=== PATIENT | male | born 1985 | race Caucasian/White ===

== ENCOUNTER 2024-12-03 12:15 | Outpatient (CLI) | payer BC, SELFPAY ==
[2024-12-03 22:55] LABS: Chlamydia trachomatis Negative (Negative); Neisseria gonorrhoeae Negative (Negative); Trichomonas vaginalis Negative (Negative)
== END 2024-12-03 23:59 | disposition home or self-care (01) ==
LOC: LAB.DROPOF 12-04 10:50
PROVIDERS: PCP Family Medicine; Visit Provider Family Medicine
DX: Z11.3 Encounter for screening for infections with a predominantly sexual mode of transmission (principal)
CPT/HCPCS: 87491; 87591; 87661

== ENCOUNTER 2025-01-21 13:55 | Outpatient (CLI) | payer BC, SELFPAY ==
[2025-01-21 16:57] LABS: Coronavirus 19, PCR Not Detected (NotDetected); Influenza A, PCR Not Detected (NotDetected); Influenza B, PCR Not Detected (NotDetected)
--- OUTSIDE RECORDS SUMMARY | 2025-01-22 13:55 | XMS_ITS | Data Portability ---
Author Organization [facility] Address [address] [place] [address] Care Team Providers Care Recycling Coordinator Name Role Phone LIZZY GOMEZ Referring Provider MELLISSA HENSON Referring Provider CJ TERRELL Referring Provider Assessment Encounter Date Assessment Date Assessment LastModified by Organization Details LastModified Time 05/26/2020 05/26/2020 Mr. Atkins present s for a check up. He has gained up to a normal weight and is trying to follow a healthy diet. He continues to take suboxone for a past history of opioid addiction and this causes chronic constipation issues. He did have a recent normal colonoscopy other than internal hemorrhoids as well as an upper endoscopy with a hiatal hernia. He has had improvement in the constipation issues improve from taking daily fiber supplement and occasional miralax. Labs are reviewed and other than elevated lipids are basically normal. He only smokes e cigarettes now and we encourage him to continue to try to cut back. He receives the flu vaccine today. His addiction medicine clinic is considering transitioning him to about 3 months of bupreno-rphine injections that apparently will enable him to wean off the suboxone. Ear wax is a recurrent issue and ears are irrigated clear. We continue to encourage healthy lifestyle choices. brandan Not available 05/27/2020 21:34:19 2021 2021 Mr. Atkins present s for a check up. He has gained up to a normal weight and is trying to follow a healthy diet. He continues to take suboxone for a past history of opioid addiction and this causes chronic constipation issues. He did have a normal colonoscopy last year other than internal hemorrhoids as well as an upper endoscopy with a hiatal hernia. He has had improvement in the constipation issues improve from taking daily fiber supplement and occasional miralax. Labs are reviewed and other than elevated lipids are basically normal. He only smokes e cigarettes now and we encourage him to continue to try to cut back. He is going to try nicotine gum Vaccines are up to date. He has issues with his sinuses and especially a chronic rhinitis. We will recommend trying the generic for Rhinocort as he tends to have dry nasal mucosa and thinks he has some damage from his previous habit of snorting opioids, etc. We continue to encourage healthy lifestyle choices. Not available 06/26/2021 22:07:24 07/08/2022 07/08/2022 Mr. Atkins present s for a check up. He has gained some weight back since a recent bout of Covid in April where he went down below 140 pounds and is trying to follow a healthy diet. He has taken suboxone for at least five years for a past history of opioid addiction and this causes chronic constipation issues. He has recently been transitioned to a monthly long acting injection of the Buprenorphine with plans to completely stop in three months with tapered dose. He is ready to be off the medication due to the abdominal discomfort and constipation. He did have a normal colonoscopy in 2019 other than internal hemorrhoids as well as an upper endoscopy with a hiatal hernia. He has had improvement in the constipation issues improve from taking daily fiber supplement and occasional miralax and the Movantik. We discussed that he will likely feel much better when completely weaned off the buprenorphine as he will be able to stop miralax as well since it also causes gas and bloating. He has been concerned about palpitations and chest pain. His maternal grandfather of OR at age 35. He no longer smokes but continues to vape and we discourage that as well. He has tried to cut back on caffeine and stopped Red Bulls but drinks coffee. With his past history of drug use he does worry about his heart, although he never injected but only snorted. Subsequently he has chronic sinus issues and what sounds like a nasal perforation. In addition with his recent bout of covid, he is worried about his heart and that warrants referral. His ten year cardiovascular risk is calculated for him at age 40 and is 4.19%. This calculation has become a mandated meaningful use screen. He does not sleep well and wakes up frequently. We also advised that may improve when he completely weans off the opioid. He remains gainfully employeed at [employer] working very long hours. Labs are reviewed and other than elevated lipids are basically normal. He only smokes e cigarettes now and we encourage him to continue to try to cut back. Vaccines are up to date but he should get the new bivalent covid booster in August since he had the virus in late April. He has issues with his sinuses and especially a chronic rhinitis. We will recommend trying the generic for Rhinocort as he tends to have dry nasal mucosa and thinks he has some damage from his previous habit of snorting opioids, etc. We continue to encourage healthy lifestyle choices. Not available 07/10/2022 11:38:54 02/27/2024 02/27/2024 Ilan had Covid 3 weeks ago and improved but this weekend is feeling very sick with fever and severe fatigue. He has bilateral ear infections and a febrile sinusitis. We recommend he be off tonight but may return to work tomorrow night. Not available 02/27/2024 10:24:23 Plan of Treatment Reminders Order Date Submit Date Provider Last Modified By Organization Details Last Modified Time Details Appointments [facility] 2024 01:30P Lili Caicedo MD Not available Not available Not available Lab rapid flu (A+B) [address], [address] [place], [address], 02/27/2024 09:39:22 rapid strep group A, throat [address], [address] [place], [address], 02/27/2024 09:39:24 lipid panel, serum 2019 020 [facility], [address] [place], [address], 05/27/2020 07:00:03 TSH, serum or plasma 10/27/ 2020 10/27/2 020 [facility], [address] [place], [address], 05/27/2020 07:00:04 CBC w/ auto diff 2019 [facility], [address] [place], [address], 05/27/2020 07:00:04 CMP, serum or plasma 2019 [facility], [address] [place], [address], 05/27/2020 07:00:03 Referral cardiolog ist referral 2021 022 [email or web address] Risa Williamson MD, [address], [address], [place], [address], 03/29/2023 16:58:09 orthopedi c referral 2019 020 [email or web address] 5 Troy Pappas MD ([facility]) , [address] [place], [address], 03/23/2020 15:27:07 Procedures None recorded. Surgeries None recorded. Imaging None recorded. Medication Orders cefdinir 300 mg capsule 2023 025 ELIZ[facility], [address] [place], [address], 11/13/2024 16:53:14 ceftriaxo ne 1 gram solution for injection 2023 024 [facility], [address] [place], [address], 02/27/2024 10:26:50 dexametha sone sodium phosphate 4 mg/mL injection solution 2023 024 [facility], [address], [place], [address], 02/27/2024 10:26:50 pantopraz ole 40 mg tablet,de layed release 2021 ELIZ[facility], [address], [place], [address], 07/08/2022 17:40:28 budesonid e 32 mcg/actua tion nasal spray 2020 021 [facility], [address], [place], [address], 07/08/2022 17:23:17 sertralin e 50 mg tablet 2020 021 [facility], [address], [place], [address], 11/13/2024 16:48:36 loratadin e 10 mg tablet 2019 020 [facility], [address], [place], [address], 07/08/2022 17:23:30 pantopraz ole 40 mg tablet,de layed release 2019 020 [facility], [address] [place], [address], 05/26/2020 09:53:00 Patient TargetsNo targets recorded. Patient Instructions Encounter Date Encounter Id Patient Instructions Last Modified By Organization Details Last Modified Time 05/26/2020 [id number] buprenorphine (injection - sublocade) Not available 05/26/2020 09:51:40 2021 [id number] stopping smokele ss tobacco use: care instructions Not available 2021 11:15:55 Quitting Tobacco : Care Instructions Not available 2021 11:15:55 07/08/2022 [id number] stopping smokele ss tobacco use: care instructions Not available 07/08/2022 17:38:21 Quitting Tobacco : Care Instructions brandan Not available 07/08/2022 17:38:20 Reason for Referral Orthopedic Referral for Wing ed left scapula follow up on left winged scapula and associated pain. 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 Fax Elvin hastings Jr., M.D., Medic al Direc [facility] [address] : [place] [address] Phone Numbe r: [id number] Nori moyer M.D. PATHO LOGY REPOR T Patie nt Name: BELL VILLAFUERTE Date of : [birth year] Age/S ex: 34/M Accou nt Numbe r: [id number] Medic al Recor d Numbe r: [id number] Order ing MD: CLOVER CH Date Colle cted : 2019 Date Recei kaylah : 2019 Date Repor kurtis : 2019 Exam: Biops y Acces vero# : [id number] Labor atory #: [id number] 3 Copie s To: Techn ician : Clini evonne Histo ry Recta l bleed ing, GERD BodyS ite DUODE NUM, BIOPS Y Gross Descr iptio n Piece s: Two. Aggre gate dimen sions : 0.6 x 0.5 x 0.2 cm. Casse ttes: One, entir safia submi tted. Micro scopi c Descr iptio n Secti ons of duode num confi rm duode nal mucos a with a anastasia l villo us archi tectu re and anastasia l numbe rs of infla mmato ry cells in the hayder a propr ia. Occas ional unrem arkab le Brunn er's gland s are prese nt deepl y. Final Diagn osis NO [place] [address] BodyS ite GASTR IC BIOPS Y Gross Descr iptio n Piece s: Two. Aggre gate dimen sions : 0.5 x 0.5 x 0.2 cm. Casse ttes: One, entir safia submi tted. Micro scopi c Descr iptio n The gastr ic mucos a shows no infla mmato ry, metap lasti c or dyspl astic proce ss. Legal ly authe ntica kurtis by NORI DUGGAN MD 03-24 11:15 :00 Final Diagn osis NO SIGNI FICAN T PATHO [place]IC [place] [address] BodyS ite ESOPH NAT, BIOPS Y SubSi te DISTA L Gross Descr iptio n Piece s: Two. Aggre gate dimen sions : 0.6 x 0.4 x 0.1 cm. Casse ttes: One, entir safia submi tted. BW/sd l Micro scopi c Descr iptio n The squam ous epith elium shows no basal hyper plasi a, elong ation of papil lae or eosin ophil s. Scatt ered lymph ocyte s are prese nt. Viral rosas e and dyspl shirley are not prese nt. Profe ssion al inter preta tion rende red by Nori moyer Jr., M.D. at [facility] Medic [facility], [address] [place] [id number] , CLIA# [id number] . Final Diagn osis CHRON IC NONSP ECIFI C ESOPH AGITI S EJT/[place] [address] Legal ly authe ntica kurtis by NORI DUGGAN MD 03-24 11:15 :00 Not Available [facility] (Pre[facility]Op [facility]) [address] [place] [address] [place], [address], 03/24/2020 11:38:06 05/26/2005/27/2020 lipid panel , serum cholesterol, total 214 mg/dL <200 high Not Available [facility] [address] [place], [address], 05/27/2020 07:00:03 05/26/2005/27/2020 lipid panel , serum HDL cholesterol 54 mg/dL > or = 40 normal Not Available [facility] [address] [place], [address], 05/27/2020 07:00:03 05/26/2005/27/2020 lipid panel , serum triglyceride s 337 mg/dL <150 high If a non-f astin g speci men was colle cted, consi karlos repea t trigl yceri de testi ng on a fasti ng speci men if clini itzel indic ated. Darrell alejandra et al. J. of Clin. Lipid ol. 2015; 9:129 -169. Not Available [facility] [address] [place], [address], 05/27/2020 07:00:03 05/26/2005/27/2020 lipid panel , serum LDL-choleste rol 112 mg/dL _(evonne c) high Refer ence range : <100 Deena able range <100 mg/dL for prima ry preve ntion ; <70 mg/dL for patie nts with CHD or diabe tic patie nts with > or = 2 CHD risk facto rs. LDL-C is now calcu lated using the Jessica n-Hop kins calcu latradha n, which is a valid ated novel luis mendoza than the Fried caro equat ion in the estim ation of LDL-C . Jessica fraire SS et al. VICKIE. 2013; 310(1 9): 2061- 2068 (http ://ed ucati on.Qu estDi Zeomatrixos tics. com/f aq/FA Q164) Not Available [facility] [address] [facility] [place], [address], 05/27/2020 07:00:03 05/26/2005/27/2020 lipid panel , serum chol/HDLC ratio 4.0 (calc ) <5.0 normal Not Available [facility] [address] [place], [address], 05/27/2020 07:00:03 05/26/2005/27/2020 lipid panel , serum non HDL cholesterol 160 mg/dL _(evonne c) <130 high For patie nts with diabe alice plus 1 major ASCVD risk facto r, treat ing to a non-H DL-C goal of <100 mg/dL (LDL- C of <70 mg/dL ) is consi chrisd a thera peuti c optio n. Not Available [facility] [address] [place], [address], 05/27/2020 07:00:03 05/26/2005/27/2020 CMP, serum or plasm a glucose 82 mg/dL 65-139 normal Non-f astin g refer ence inter caleb Not Available [facility] [address] [place], [address], 05/27/2020 07:00:03 05/26/2005/27/2020 CMP, serum or plasm a urea nitrogen (BUN) 8 mg/dL 7-25 normal Not Available [facility] [address] [place], [address], 05/27/2020 07:00:03 05/26/2005/27/2020 CMP, serum or plasm a creatinine 1.00 mg/dL 0.60-1 .35 normal Not Available [facility] [address] [place], [address], 05/27/2020 07:00:03 05/26/2005/27/2020 CMP, serum or plasm a eGFR non-afr. palestinian 98 mL/mi n/1.7 3m2 > or = 60 normal Not Available [facility] [address] [facility] [place], [address], 05/27/2020 07:00:03 05/26/20 20 05/27/2020 CMP, serum or plasm a eGFR 113 mL/mi n/1.7 3m2 > or = 60 normal Not Available [facility] [address] [facility] [place], [address], 05/27/2020 07:00:03 05/26/2005/27/2020 CMP, serum or plasm a BUN/creatini ne ratio NOT APPLIC ABLE (calc ) 6-22 Not Available [facility] [address] [place], [address], 05/27/2020 07:00:03 05/26/2005/27/2020 CMP, serum or plasm a sodium 142 mmol/ L 135-14 6 normal Not Available [facility] [address] [place], [address], 05/27/2020 07:00:03 05/26/20 20 05/27/2020 CMP, serum or plasm a potassium 4.5 mmol/ L 3.5-5. 3 normal Not Available [facility] [address] [place], [address], 05/27/2020 07:00:03 05/26/2005/27/2020 CMP, serum or plasm a chloride 104 mmol/ L 98-110 normal Not Available [facility] [address] [facility] [place], [address], 05/27/2020 07:00:03 05/26/2005/27/2020 CMP, serum or plasm a carbon dioxide 33 mmol/ L 20-32 high Not Available [facility] [address] [facility] [place], [address], 05/27/2020 07:00:03 05/26/2005/27/2020 CMP, serum or plasm a calcium 10.1 mg/dL 8.6-10 .3 normal Not Available [facility] [address] [facility] [place], [address], 05/27/2020 07:00:03 05/26/2005/27/2020 CMP, serum or plasm a protein, total 7.1 g/dL 6.1-8. 1 normal Not Available [facility] [address] [facility] [place], [address], 05/27/2020 07:00:03 05/26/2005/27/2020 CMP, serum or plasm a albumin 5.0 g/dL 3.6-5. 1 normal Not Available [facility] [place] [address] [facility] [place], [address], 05/27/2020 07:00:03 05/26/2005/27/2020 CMP, serum or plasm a globulin 2.1 g/dL_ (calc ) 1.9-3. 7 normal Not Available [facility] [address] [facility] [place], [address], 05/27/2020 07:00:03 05/26/2005/27/2020 CMP, serum or plasm a albumin/glob ulin ratio 2.4 (calc ) 1.0-2. 5 normal Not Available [facility] [place], [address], 05/27/2020 07:00:03 05/26/2005/27/2020 CMP, serum or plasm a bilirubin, total 0.3 mg/dL 0.2-1. 2 normal Not Available [facility] [place], [address], 05/27/2020 07:00:03 05/26/202020 CMP, serum or plasm a alkaline phosphatase 64 U/L 36-130 normal Not Available [facility] [employer] [facility] [address] [facility] [place], [address], 05/27/2020 07:00:03 05/26/2005/27/2020 CMP, serum or plasm a AST 28 U/L 10-40 normal Not Available [facility] [address] [facility] [place], [address], 05/27/2020 07:00:03 05/26/2005/27/2020 CMP, serum or plasm a ALT 25 U/L 9-46 normal Not Available [facility] [place], [address], 05/27/2020 07:00:03 05/26/2005/27/2020 TSH, serum or plasm a TSH 2.05 mIU/L 0.40-4 .50 normal Not Available [employer] [facility] [address] [facility] [place], [address], 05/27/2020 07:00:04 05/26/2005/27/2020 CBC w/ auto diff white blood cell count 8.2 thous and/u L 3.8-10 .8 normal Not Available [employer] [facility] [address] [place], [place] [address], [address], 05/27/2020 07:00:04 05/26/2005/27/2020 CBC w/ auto diff red blood cell count 4.37 regine on/uL 4.20-5 .80 normal Not Available [facility] [facility] [place], [address], 05/27/2020 07:00:04 05/26/2005/27/2020 CBC w/ auto diff hemoglobin 12.7 g/dL 13.2-1 7.1 low Not Available [facility] [facility] [address] [place], [place] [address], [address], 05/27/2020 07:00:04 05/26/2005/27/2020 CBC w/ auto diff hematocrit 37.9 % 38.5-5 0.0 low Not Available [facility] [address] [facility] [place], [address], 05/27/2020 07:00:04 05/26/2005/27/2020 CBC w/ auto diff MCV 86.7 fL 80.0-1 00.0 normal Not Available [facility] [address] [facility] [place], [address], 05/27/2020 07:00:04 05/26/2005/27/2020 CBC w/ auto diff MCH 29.1 pg 27.0-3 3.0 normal Not Available [facility] [address] [facility] [place], [address], 05/27/2020 07:00:04 05/26/2005/27/2020 CBC w/ auto diff MCHC 33.5 g/dL 32.0-3 6.0 normal Not Available [facility] [address] [facility] [place], [address], 05/27/2020 07:00:04 05/26/2005/27/2020 CBC w/ auto diff RDW 13.0 % 11.0-1 5.0 normal Not Available [facility] [address] [facility] [place], [address], 05/27/2020 07:00:04 05/26/2005/27/2020 CBC w/ auto diff platelet count 230 thous and/u L 140-40 0 normal Not Available [facility] [address] [facility] [place], [address], 05/27/2020 07:00:04 05/26/2005/27/2020 CBC w/ auto diff MPV 10.4 fL 7.5-12 .5 normal Not Available [facility] [address], [address], 05/27/2020 07:00:04 05/26/20 20 05/27/2020 CBC w/ auto diff absolute neutrophils 3838 cells /uL 1500-7 800 normal Not Available [facility] [address], [place], [address], 05/27/2020 07:00:04 05/26/2005/27/2020 CBC w/ auto diff absolute lymphocytes 3387 cells /uL 850-39 00 normal Not Available [facility] [address], [place], [address], 05/27/2020 07:00:04 05/26/2005/27/2020 CBC w/ auto diff absolute monocytes 631 cells /uL 200-95 0 normal Not Available [facility] [address], [place], [address], 05/27/2020 07:00:04 05/26/2005/27/2020 CBC w/ auto diff absolute eosinophils 303 cells /uL 15-500 normal Not Available [facility] [address], [place], [address], 05/27/2020 07:00:04 05/26/2005/27/2020 CBC w/ auto diff absolute basophils 41 cells /uL 0-200 normal Not Available [facility] [address], [place], [address], 05/27/2020 07:00:04 05/26/2005/27/2020 CBC w/ auto diff neutrophils 46.8 % normal Not Available [facility] [address], [place], [address], 05/27/2020 07:00:04 05/26/2005/27/2020 CBC w/ auto diff lymphocytes 41.3 % normal Not Available [facility] [address] [place], [address], 05/27/2020 07:00:04 05/26/20 20 05/27/2020 CBC w/ auto diff monocytes 7.7 % normal Not Available [facility] [address] [place], [address], 05/27/2020 07:00:04 05/26/20 20 05/27/2020 CBC w/ auto diff eosinophils 3.7 % normal Not Available [facility] [address] [place], [address], 05/27/2020 07:00:04 05/26/2005/27/2020 CBC w/ auto diff basophils 0.5 % normal Not Available [facility] [address] [place], [address], 05/27/2020 07:00:04 06/21/20 21 06/22/2021 LIPID PANEL , STAND CIERRA cholesterol, total 198 mg/dL <200 normal Not Available [facility] [address] [place], [address], 06/22/2021 07:14:16 06/21/20 21 06/22/2021 LIPID PANEL , STAND CIERRA HDL cholesterol 53 mg/dL > or = 40 normal Not Available [facility] [address] [place], [address], 06/22/2021 07:14:16 06/21/20 21 06/22/2021 LIPID PANEL , STAND CIERRA triglyceride s 259 mg/dL <150 high If a non-f astin g speci men was colle cted, consi karlos repea t trigl yceri de testi ng on a fasti ng speci men if clini itzel indic ated. Darrell alejandra et al. J. of Clin. Lipid ol. 2015; 9:129 -169. Not Available [facility] [address], [place], [address], 06/22/2021 07:14:16 06/21/20 21 06/22/2021 LIPID PANEL , STAND CIERRA LDL-choleste rol 108 mg/dL _(evonne c) high Refer ence range : <100 Deena able range <100 mg/dL for prima ry preve ntion ; <70 mg/dL for patie nts with CHD or diabe tic patie nts with > or = 2 CHD risk facto rs. LDL-C is now calcu lated using the Jessica n-Hop kins calcu latio n, which is a valid ated novel luis solis anthony r accur acy than the Fried caro equat ion in the estim ation of LDL-C . Jessica fraire SS et al. VICKIE. 2013; 310(1 9): 2061- 2068 (http ://ed ucati on.Qu [employer]. com/f aq/FA Q164) Not Available [facility] [address], [place], [address], 06/22/2021 07:14:16 06/21/2006/22/2021 LIPID PANEL , STAND CIERRA chol/HDLC ratio 3.7 (calc ) <5.0 normal Not Available [facility] [place] [facility] [address], [place], [address], 06/22/2021 07:14:16 06/21/20 21 06/22/2021 LIPID PANEL , STAND CIERRA non HDL cholesterol 145 mg/dL _(evonne c) <130 high For patie nts with diabe alice plus 1 major ASCVD risk facto r, treat ing to a non-H DL-C goal of <100 mg/dL (LDL- C of <70 mg/dL ) is consi chrisd a rafat spring optio n. Not Available [facility] [place] [facility] [address], [place], [address], 06/22/2021 07:14:16 06/21/20 21 06/22/2021 COMPR EHENS SEDRICK METAB OLIC PANEL glucose 91 mg/dL 65-139 normal Non-f astin g refer ence inter caleb Not Available [facility] [place] [facility] [address] [place], [address], 06/22/2021 07:14:16 06/21/20 21 06/22/2021 COMPR EHENS SEDRICK METAB OLIC PANEL urea nitrogen (BUN) 10 mg/dL 7-25 normal Not Available [facility] [place] [facility] [address] [place], [address], 06/22/2021 07:14:16 06/21/20 21 06/22/2021 COMPR EHENS SEDRICK METAB OLIC PANEL creatinine 1.02 mg/dL 0.60-1 .35 normal Not Available [facility] [address] [place], [address], 06/22/2021 07:14:16 06/21/20 21 06/22/2021 COMPR EHENS SEDRICK METAB OLIC PANEL eGFR non-afr. palestinian 94 mL/mi n/1.7 3m2 > or = 60 normal Not Available [facility] [place] [facility] [address] [place], [address], 06/22/2021 07:14:16 06/21/20 21 06/22/2021 COMPR EHENS SEDRICK METAB OLIC PANEL eGFR 109 mL/mi n/1.7 3m2 > or = 60 normal Not Available [facility] [place] [facility] [address] [place], [address], 06/22/2021 07:14:16 06/21/20 21 06/22/2021 COMPR EHENS SEDRICK METAB OLIC PANEL BUN/creatini ne ratio NOT APPLIC ABLE (calc ) 6-22 Not Available [facility] [address] [place], [address], 06/22/2021 07:14:16 06/21/20 21 06/22/2021 COMPR EHENS SEDRICK METAB OLIC PANEL sodium 140 mmol/ L 135-14 6 normal Not Available [facility] [address] [place], [address], 06/22/2021 07:14:16 06/21/20 21 06/22/2021 COMPR EHENS SEDRICK METAB OLIC PANEL potassium 4.5 mmol/ L 3.5-5. 3 normal Not Available [facility] [address] [place], [address], 06/22/2021 07:14:16 06/21/20 21 06/22/2021 COMPR EHENS SEDRICK METAB OLIC PANEL chloride 101 mmol/ L 98-110 normal Not Available [facility] [address] [place], [address], 06/22/2021 07:14:16 06/21/20 21 06/22/2021 COMPR EHENS SEDRICK METAB OLIC PANEL carbon dioxide 36 mmol/ L 20-32 high Not Available [facility] [address] [place], [address], 06/22/2021 07:14:16 06/21/20 21 06/22/2021 COMPR EHENS SEDRICK METAB OLIC PANEL calcium 10.1 mg/dL 8.6-10 .3 normal Not Available [facility] [address] [place], [address], 06/22/2021 07:14:16 06/21/20 21 06/22/2021 COMPR EHENS SEDRICK METAB OLIC PANEL protein, total 7.2 g/dL 6.1-8. 1 normal Not Available [facility] [address] [place], [address], 06/22/2021 07:14:16 06/21/20 21 06/22/2021 COMPR EHENS SEDRICK METAB OLIC PANEL albumin 5.1 g/dL 3.6-5. 1 normal Not Available [facility] [address] [place], [address], 06/22/2021 07:14:16 06/21/20 21 06/22/2021 COMPR EHENS SEDRICK METAB OLIC PANEL globulin 2.1 g/dL_ (calc ) 1.9-3. 7 normal Not Available [facility] [address] [place], [address], 06/22/2021 07:14:16 06/21/20 21 06/22/2021 COMPR EHENS SEDRICK METAB OLIC PANEL albumin/glob ulin ratio 2.4 (calc ) 1.0-2. 5 normal Not Available [facility] [address] [place], [address], 06/22/2021 07:14:16 06/21/20 21 06/22/2021 COMPR EHENS SEDRICK METAB OLIC PANEL bilirubin, total 0.3 mg/dL 0.2-1. 2 normal Not Available [facility] [address] [place], [address], 06/22/2021 07:14:16 06/21/20 21 06/22/2021 COMPR EHENS SEDRICK METAB OLIC PANEL alkaline phosphatase 66 U/L 36-130 normal Not Available [facility] [address] [place], [address], 06/22/2021 07:14:16 06/21/20 21 06/22/2021 COMPR EHENS SEDRICK METAB OLIC PANEL AST 20 U/L 10-40 normal Not Available [facility] [address] [place] [address], [address], 06/22/2021 07:14:16 06/21/20 21 06/22/2021 COMPR EHENS SEDRICK METAB OLIC PANEL ALT 15 U/L 9-46 normal Not Available [facility] [address] [place], [address], 06/22/2021 07:14:16 06/21/20 21 06/22/2021 TSH TSH 1.25 mIU/L 0.40-4 .50 normal Not Available [facility] [address] [place], [address], 06/22/2021 07:14:16 06/21/20 21 06/22/2021 CBC (INCL UDES DIFF/ PLT) white blood cell count 6.8 thous and/u L 3.8-10 .8 normal Not Available [facility] [address] [place], [address], 06/22/2021 07:14:17 06/21/20 21 06/22/2021 CBC (INCL UDES DIFF/ PLT) red blood cell count 4.87 regine on/uL 4.20-5 .80 normal Not Available [facility] [address] [place], [address], 06/22/2021 07:14:17 06/21/20 21 06/22/2021 CBC (INCL UDES DIFF/ PLT) hemoglobin 13.7 g/dL 13.2-1 7.1 normal Not Available [facility] [address] [place], [address], 06/22/2021 07:14:17 06/21/20 21 06/22/2021 CBC (INCL UDES DIFF/ PLT) hematocrit 41.4 % 38.5-5 0.0 normal Not Available [facility] [address] [place], [address], 06/22/2021 07:14:17 06/21/20 21 06/22/2021 CBC (INCL UDES DIFF/ PLT) MCV 85.0 fL 80.0-1 00.0 normal Not Available [facility] [place] [facility] [address] [place], [address], 06/22/2021 07:14:17 06/21/20 21 06/22/2021 CBC (INCL UDES DIFF/ PLT) MCH 28.1 pg 27.0-3 3.0 normal Not Available [facility] [address] [place], [address], 06/22/2021 07:14:17 06/21/20 21 06/22/2021 CBC (INCL UDES DIFF/ PLT) MCHC 33.1 g/dL 32.0-3 6.0 normal Not Available [facility] [address] [place], [address], 06/22/2021 07:14:17 06/21/20 21 06/22/2021 CBC (INCL UDES DIFF/ PLT) RDW 13.3 % 11.0-1 5.0 normal Not Available [facility] [address] [place], [address], 06/22/2021 07:14:17 06/21/20 21 06/22/2021 CBC (INCL UDES DIFF/ PLT) platelet count 253 thous and/u L 140-40 0 normal Not Available [facility] [address] [place], [address], 06/22/2021 07:14:17 06/21/20 21 06/22/2021 CBC (INCL UDES DIFF/ PLT) MPV 10.5 fL 7.5-12 .5 normal Not Available [facility] [address] [place], [address], 06/22/2021 07:14:17 06/21/20 21 06/22/2021 CBC (INCL UDES DIFF/ PLT) absolute neutrophils 3631 cells /uL 1500-7 800 normal Not Available [facility] [address], [place], [address], 06/22/2021 07:14:17 06/21/20 21 06/22/2021 CBC (INCL UDES DIFF/ PLT) absolute lymphocytes 2346 cells /uL 850-39 00 normal Not Available [facility] [place] [facility] [address], [place], [address], 06/22/2021 07:14:17 06/21/20 21 06/22/2021 CBC (INCL UDES DIFF/ PLT) absolute monocytes 517 cells /uL 200-95 0 normal Not Available [facility] [place] [facility] [address], [place], [address], 06/22/2021 07:14:17 06/21/20 21 06/22/2021 CBC (INCL UDES DIFF/ PLT) absolute eosinophils 279 cells /uL 15-500 normal Not Available [facility] [place] [facility] [address], [place], [address], 06/22/2021 07:14:17 06/21/20 21 06/22/2021 CBC (INCL UDES DIFF/ PLT) absolute basophils 27 cells /uL 0-200 normal Not Available [facility] [place] [facility] [address], [place], [address], 06/22/2021 07:14:17 06/21/20 21 06/22/2021 CBC (INCL UDES DIFF/ PLT) neutrophils 53.4 % normal Not Available [facility] [place] [facility] [address], [place], [address], 06/22/2021 07:14:17 06/21/20 21 06/22/2021 CBC (INCL UDES DIFF/ PLT) lymphocytes 34.5 % normal Not Available [facility] [place] [facility] [address], [place], [address], 06/22/2021 07:14:17 06/21/20 21 06/22/2021 CBC (INCL UDES DIFF/ PLT) monocytes 7.6 % normal Not Available [facility] [place] [facility] [address] [place], [address], 06/22/2021 07:14:17 06/21/20 21 06/22/2021 CBC (INCL UDES DIFF/ PLT) eosinophils 4.1 % normal Not Available [facility] [place] [facility] [address] [facility], [place], [address], 06/22/2021 07:14:17 06/21/20 21 06/22/2021 CBC (INCL UDES DIFF/ PLT) basophils 0.4 % normal Not Available [facility] [place] [facility] [address] [facility], [place], [address], 06/22/2021 07:14:17 07/01/20 22 07/02/2022 LIPID PANEL , STAND CIERRA cholesterol, total 222 mg/dL <200 high Not Available [facility] [place] [facility] [address] [place], [address], 07/02/2022 11:41:30 07/01/20 22 07/02/2022 LIPID PANEL , STAND CIERRA HDL cholesterol 48 mg/dL > or = 40 normal Not Available [facility] [place] [facility] [address] [place], [address], 07/02/2022 11:41:30 07/01/20 22 07/02/2022 LIPID PANEL , STAND CIERRA triglyceride s 281 mg/dL <150 high If a non-f astin g speci men was colle cted, consi karlos repea t trigl yceri de testi ng on a fasti ng speci men if clini itzel indic ated. Darrell alejandra et al. J. of Clin. Lipid ol. 2015; 9:129 -169. Not Available [facility] [place] [facility] [address] [place], [address], 07/02/2022 11:41:30 12/02/20 22 07/02/2022 LIPID PANEL , STAND CIERRA LDL-choleste rol 131 mg/dL _(evonne c) high Refer ence range : <100 Deena able range <100 mg/dL for prima ry preve ntion ; <70 mg/dL for patie nts with CHD or diabe tic patie nts with > or = 2 CHD risk facto rs. LDL-C is now calcu lated using the Jessica n-Hop kins calcu reba n, which is a valid ated novel metho d provi ding anthony r accur acy than the Fried caro equat ion in the estim ation of LDL-C . Jessica n SS et al. VICKIE. 2013; 310(1 9): 2061- 2068 (http ://ed ucati on.Qu estDresden Silicon. com/f aq/FA Q164) Not Available [facility] [place] [facility] [address], [place], [address], 07/02/2022 11:41:30 07/01/20 22 07/02/2022 LIPID PANEL , STAND CIERRA chol/HDLC ratio 4.6 (calc ) <5.0 normal Not Available [facility] [place] [facility] [address], [place], [address], 07/02/2022 11:41:30 07/01/20 22 07/02/2022 LIPID PANEL , STAND CIERRA non HDL cholesterol 174 mg/dL _(evonne c) <130 high For patie nts with diabe alice plus 1 major ASCVD risk facto r, treat ing to a non-H DL-C goal of <100 mg/dL (LDL- C of <70 mg/dL ) is consi chrisd a therlanie temple c optio n. Not Available [facility] [place] [facility] [address], [place], [address], 07/02/2022 11:41:30 07/01/20 22 07/02/2022 COMPR EHENS SEDRICK METAB OLIC PANEL glucose 93 mg/dL 65-139 normal Non-f astin g refer ence inter calbe Not Available [facility] [place] [facility] [address] [place], [address], 07/02/2022 11:41:31 07/01/20 22 07/02/2022 COMPR EHENS SEDRICK METAB OLIC PANEL urea nitrogen (BUN) 14 mg/dL 7-25 normal Not Available [facility] [address] [place], [address], 07/02/2022 11:41:31 07/01/20 22 07/02/2022 COMPR EHENS SEDRICK METAB OLIC PANEL creatinine 1.15 mg/dL 0.60-1 .26 normal Not Available [facility] [address] [place], [address], 07/02/2022 11:41:31 07/01/20 22 07/02/2022 COMPR EHENS SEDRICK METAB OLIC PANEL eGFR 84 mL/mi n/1.7 3m2 > or = 60 normal The eGFR is based on the CKD-E PI 2020 equat ion. To calcu late the new eGFR from a previ ous Creat inine or Cysta tin C resul t, go to https ://elayne [email or web address] klein/yajaira pastrana s/ kdoqi /gfr% 5Fcal culat or Not Available [facility] [address] [place], [address], 07/02/2022 11:41:31 07/01/20 22 07/02/2022 COMPR EHENS SEDRICK METAB OLIC PANEL BUN/creatini ne ratio NOT APPLIC ABLE (calc ) 6-22 Not Available [facility] [place] [facility] [address] [place], [address], 07/02/2022 11:41:31 07/01/20 22 07/02/2022 COMPR EHENS SEDRICK METAB OLIC PANEL sodium 142 mmol/ L 135-14 6 normal Not Available [facility] [place] [facility] [address] [facility] [place], [address], 07/02/2022 11:41:31 07/01/20 22 07/02/2022 COMPR EHENS SEDRICK METAB OLIC PANEL potassium 4.0 mmol/ L 3.5-5. 3 normal Not Available [facility] [address] [place], [address], 07/02/2022 11:41:31 07/01/20 22 07/02/2022 COMPR EHENS SEDRICK METAB OLIC PANEL chloride 103 mmol/ L 98-110 normal Not Available [facility] [address] [place], [address], 07/02/2022 11:41:31 07/01/20 22 07/02/2022 COMPR EHENS SEDRICK METAB OLIC PANEL carbon dioxide 34 mmol/ L 20-32 high Not Available [facility] [address] [place], [address], 07/02/2022 11:41:31 07/01/20 22 07/02/2022 COMPR EHENS SEDRICK METAB OLIC PANEL calcium 10.0 mg/dL 8.6-10 .3 normal Not Available [facility] [address] [place], [address], 07/02/2022 11:41:31 07/01/20 22 07/02/2022 COMPR EHENS SEDRICK METAB OLIC PANEL protein, total 7.1 g/dL 6.1-8. 1 normal Not Available [facility] [address] [place], [address], 07/02/2022 11:41:31 07/01/20 22 07/02/2022 COMPR EHENS SEDRICK METAB OLIC PANEL albumin 5.0 g/dL 3.6-5. 1 normal Not Available [facility] [address] [place], [address], 07/02/2022 11:41:31 07/01/20 22 07/02/2022 COMPR EHENS SEDRICK METAB OLIC PANEL globulin 2.1 g/dL_ (calc ) 1.9-3. 7 normal Not Available [facility] [address], [place], [address], 07/02/2022 11:41:31 07/01/20 22 07/02/2022 COMPR EHENS SEDRICK METAB OLIC PANEL albumin/glob ulin ratio 2.4 (calc ) 1.0-2. 5 normal Not Available [facility] [address], [place], [address], 07/02/2022 11:41:31 07/01/20 22 07/02/2022 COMPR EHENS SEDRICK METAB OLIC PANEL bilirubin, total 0.3 mg/dL 0.2-1. 2 normal Not Available [facility] [address], [place], [address], 07/02/2022 11:41:31 07/01/20 22 07/02/2022 COMPR EHENS SEDRICK METAB OLIC PANEL alkaline phosphatase 81 U/L 36-130 normal Not Available [facility] [employer] [facility] [address], [place], [address], 07/02/2022 11:41:31 07/01/20 22 07/02/2022 COMPR EHENS SEDRICK METAB OLIC PANEL AST 22 U/L 10-40 normal Not Available [facility] [address], [place], [address], 07/02/2022 11:41:31 07/01/20 22 07/02/2022 COMPR EHENS SEDRICK METAB OLIC PANEL ALT 16 U/L 9-46 normal Not Available [facility] [address], [place], [address], 07/02/2022 11:41:31 07/01/20 22 07/02/2022 TSH TSH 5.33 mIU/L 0.40-4 .50 high Not Available [facility] [place] [facility] [address] [place], [address], 07/02/2022 11:41:32 07/01/20 22 07/02/2022 CBC (INCL UDES DIFF/ PLT) white blood cell count 9.8 thous and/u L 3.8-10 .8 normal Not Available [facility] [place] [facility] [address] [place], [address], 07/02/2022 11:41:32 07/01/20 22 07/02/2022 CBC (INCL UDES DIFF/ PLT) red blood cell count 4.39 regine on/uL 4.20-5 .80 normal Not Available [facility] [address] [place], [address], 07/02/2022 11:41:32 07/01/20 22 07/02/2022 CBC (INCL UDES DIFF/ PLT) hemoglobin 12.6 g/dL 13.2-1 7.1 low Not Available [facility] [place] [facility] [address] [place], [address], 07/02/2022 11:41:32 07/01/20 22 07/02/2022 CBC (INCL UDES DIFF/ PLT) hematocrit 37.3 % 38.5-5 0.0 low Not Available [facility] [address] [place], [address], 07/02/2022 11:41:32 07/01/20 22 07/02/2022 CBC (INCL UDES DIFF/ PLT) MCV 85.0 fL 80.0-1 00.0 normal Not Available [facility] [address] [place], [address], 07/02/2022 11:41:32 07/01/20 22 07/02/2022 CBC (INCL UDES DIFF/ PLT) MCH 28.7 pg 27.0-3 3.0 normal Not Available [facility] [place] [facility] [address] [place], [address], 07/02/2022 11:41:32 07/01/20 22 07/02/2022 CBC (INCL UDES DIFF/ PLT) MCHC 33.8 g/dL 32.0-3 6.0 normal Not Available [facility] [place] [facility] [address] [place], [address], 07/02/2022 11:41:32 07/01/20 22 07/02/2022 CBC (INCL UDES DIFF/ PLT) RDW 13.5 % 11.0-1 5.0 normal Not Available [facility] [place] [facility] [address] [place], [address], 07/02/2022 11:41:32 07/01/20 22 07/02/2022 CBC (INCL UDES DIFF/ PLT) platelet count 216 thous and/u L 140-40 0 normal Not Available [facility] [place] [facility] [address] [facility], [place], [address], 07/02/2022 11:41:32 07/01/20 22 07/02/2022 CBC (INCL UDES DIFF/ PLT) MPV 10.8 fL 7.5-12 .5 normal Not Available [facility] [place] [facility] [address] [place], [address], 07/02/2022 11:41:32 07/01/20 22 07/02/2022 CBC (INCL UDES DIFF/ PLT) absolute neutrophils 5635 cells /uL 1500-7 800 normal Not Available [facility] [address] [facility], [place], [address], 07/02/2022 11:41:32 07/01/20 22 07/02/2022 CBC (INCL UDES DIFF/ PLT) absolute lymphocytes 3136 cells /uL 850-39 00 normal Not Available [facility] [place] [facility] [address], [place], [address], 07/02/2022 11:41:32 07/01/20 22 07/02/2022 CBC (INCL UDES DIFF/ PLT) absolute monocytes 608 cells /uL 200-95 0 normal Not Available [facility] [place] [facility] [address], [place], [address], 07/02/2022 11:41:32 07/01/20 22 07/02/2022 CBC (INCL UDES DIFF/ PLT) absolute eosinophils 382 cells /uL 15-500 normal Not Available [facility] [place] [facility] [address], [place], [address], 07/02/2022 11:41:32 07/01/20 22 07/02/2022 CBC (INCL UDES DIFF/ PLT) absolute basophils 39 cells /uL 0-200 normal Not Available [facility] [place] [facility] [address], [place], [address], 07/02/2022 11:41:32 07/01/20 22 07/02/2022 CBC (INCL UDES DIFF/ PLT) neutrophils 57.5 % normal Not Available [facility] [place] [facility] [address], [place], [address], 07/02/2022 11:41:32 07/01/20 22 07/02/2022 CBC (INCL UDES DIFF/ PLT) lymphocytes 32.0 % normal Not Available [facility] [place] [facility] [address], [place], [address], 07/02/2022 11:41:32 07/01/20 22 07/02/2022 CBC (INCL UDES DIFF/ PLT) monocytes 6.2 % normal Not Available [facility] [place] [facility] [address], [place], [address], 07/02/2022 11:41:32 07/01/20 22 07/02/2022 CBC (INCL UDES DIFF/ PLT) eosinophils 3.9 % normal Not Available [facility] [place] [facility] [address], [place], [address], 07/02/2022 11:41:32 07/01/20 22 07/02/2022 CBC (INCL UDES DIFF/ PLT) basophils 0.4 % normal Not Available [facility] [place] [facility] [address], [place], [address], 07/02/2022 11:41:32 09/02/19 23 09/03/2022 LIPID PANEL , STAND CIERRA cholesterol, total 208 mg/dL <200 high Not Available [facility] [place] [facility] [address] [facility] [facility], [place], [address], 09/03/2022 06:06:34 09/02/19 23 09/03/2022 LIPID PANEL , STAND CIERRA HDL cholesterol 54 mg/dL > or = 40 normal Not Available [facility] [place] [facility] [address] [facility] [facility], [place], [address], 09/03/2022 06:06:34 09/02/19 23 09/03/2022 LIPID PANEL , STAND CIERRA triglyceride s 38 mg/dL <150 normal Not Available [facility] [place] [facility] [address] [facility] [facility], [place], [address], 09/03/2022 06:06:34 09/02/19 23 09/03/2022 LIPID PANEL , STAND CIERRA LDL-choleste rol 142 mg/dL _(evonne c) high Refer ence range : <100 Deena able range <100 mg/dL for prima ry preve ntion ; <70 mg/dL for patie nts with CHD or diabe tic patie nts with > or = 2 CHD risk facto rs. LDL-C is now calcu lated using the Jessica n-Hop kins merariu reba n, which is a valid ated novel metho d provi ding anthony r accur acy than the Fried caro equat ion in the estim ation of LDL-C . Jessica n SS et al. VICKIE. 2013; 310(1 9): 2061- 2068 (http ://ed razati on.Qu Endy tylerAurora Parts & Accessories. com/f aq/FA Q164) Not Available [facility] [place] [facility] [address], [place], [address], 09/03/2022 06:06:34 09/02/19 23 09/03/2022 LIPID PANEL , STAND CIERRA chol/HDLC ratio 3.9 (calc ) <5.0 normal Not Available [facility] [place] [facility] [address], [place], [address], 09/03/2022 06:06:34 09/02/19 23 09/03/2022 LIPID PANEL , STAND CIERRA non HDL cholesterol 154 mg/dL _(evonne c) <130 high For patie nts with diabe alice plus 1 major ASCVD risk facto r, treat ing to a non-H DL-C goal of <100 mg/dL (LDL- C of <70 mg/dL ) is consi srinivas francoiso n. Not Available [facility] [place] [facility] [address], [place], [address], 09/03/2022 06:06:34 09/02/1909/03/2022 COMPR EHENS SEDRICK METAB OLIC PANEL glucose 126 mg/dL 65-99 high Fasti ng refer ence inter caleb For someo ne witho ut known diabe alice, a gluco se value >125 mg/dL indic ates that they may have diabe alice and this shoul d be confi rmed with a follo w-up test. Not Available [facility] [place] [facility] [address], [place], [address], 09/03/2022 06:06:35 09/02/19 23 09/03/2022 COMPR EHENS SEDRICK METAB OLIC PANEL urea nitrogen (BUN) 16 mg/dL 7-25 normal Not Available [facility] [address] [facility] [place], [address], 09/03/2022 06:06:35 09/02/19 23 09/03/2022 COMPR EHENS SEDRICK METAB OLIC PANEL creatinine 0.94 mg/dL 0.60-1 .26 normal Not Available [facility] [address] [place], [address], 09/03/2022 06:06:35 09/02/19 23 09/03/2022 COMPR EHENS SEDRICK METAB OLIC PANEL eGFR 107 mL/mi n/1.7 3m2 > or = 60 normal The eGFR is based on the CKD-E PI 2020 equat ion. To calcu late the new eGFR from a previ ous Creat inine or Cysta tin C resul t, go to https ://elayne [email or web address] [email or web address] pastrana s/ kdoqi /gfr% 5Fcal culat or Not Available [facility] [address] [place], [address], 09/03/2022 06:06:35 09/02/19 23 09/03/2022 COMPR EHENS SEDRICK METAB OLIC PANEL BUN/creatini ne ratio NOT APPLIC ABLE (calc ) 6-22 Not Available [facility] [address] [place], [address], 09/03/2022 06:06:35 09/02/19 23 09/03/2022 COMPR EHENS SEDRICK METAB OLIC PANEL sodium 139 mmol/ L 135-14 6 normal Not Available [facility] [address] [place], [address], 09/03/2022 06:06:35 09/02/19 23 09/03/2022 COMPR EHENS SEDRICK METAB OLIC PANEL potassium 4.2 mmol/ L 3.5-5. 3 normal Not Available [facility] [address] [facility] [place], [address], 09/03/2022 06:06:35 09/02/19 23 09/03/2022 COMPR EHENS SEDRICK METAB OLIC PANEL chloride 103 mmol/ L 98-110 normal Not Available [facility] [address] [facility] [place], [address], 09/03/2022 06:06:35 09/02/19 23 09/03/2022 COMPR EHENS SEDRICK METAB OLIC PANEL carbon dioxide 28 mmol/ L 20-32 normal Not Available [facility] [address] [facility] [place], [address], 09/03/2022 06:06:35 09/02/19 23 09/03/2022 COMPR EHENS SEDRICK METAB OLIC PANEL calcium 9.6 mg/dL 8.6-10 .3 normal Not Available [facility] [address] [facility] [place], [address], 09/03/2022 06:06:35 09/02/19 23 09/03/2022 COMPR EHENS SEDRICK METAB OLIC PANEL protein, total 7.0 g/dL 6.1-8. 1 normal Not Available [facility] [address] [facility] [place], [address], 09/03/2022 06:06:35 09/02/19 23 09/03/2022 COMPR EHENS SEDRICK METAB OLIC PANEL albumin 5.0 g/dL 3.6-5. 1 normal Not Available [facility] [address] [facility] [place], [address], 09/03/2022 06:06:35 09/02/19 23 09/03/2022 COMPR EHENS SEDRICK METAB OLIC PANEL globulin 2.0 g/dL_ (calc ) 1.9-3. 7 normal Not Available [facility] [address] [facility] [place], [address], 09/03/2022 06:06:35 09/02/19 23 09/03/2022 COMPR EHENS SEDRICK METAB OLIC PANEL albumin/glob ulin ratio 2.5 (calc ) 1.0-2. 5 normal Not Available [employer] [address] [facility] [place], [address], 09/03/2022 06:06:35 09/02/19 23 09/03/2022 COMPR EHENS SEDRICK METAB OLIC PANEL bilirubin, total 0.3 mg/dL 0.2-1. 2 normal Not Available [facility] [address] [place], [address], 09/03/2022 06:06:35 09/02/19 23 09/03/2022 COMPR EHENS SEDRICK METAB OLIC PANEL alkaline phosphatase 70 U/L 36-130 normal Not Available [facility] [employer] [facility] [address] [facility] [place], [address], 09/03/2022 06:06:35 09/02/19 23 09/03/2022 COMPR EHENS SEDRICK METAB OLIC PANEL AST 21 U/L 10-40 normal Not Available [facility] [address] [facility] [place], [address], 09/03/2022 06:06:35 09/02/19 23 09/03/2022 COMPR EHENS SEDRICK METAB OLIC PANEL ALT 11 U/L 9-46 normal Not Available [employer] [facility] [address] [facility] [place], [address], 09/03/2022 06:06:35 09/02/19 23 09/03/2022 TSH TSH 0.97 mIU/L 0.40-4 .50 normal Not Available [employer] [facility] [address] [facility] [place], [address], 09/03/2022 06:06:35 09/02/19 23 09/03/2022 CBC (INCL UDES DIFF/ PLT) white blood cell count 9.5 thous and/u L 3.8-10 .8 normal Not Available [facility] [place] [facility] [address], [place], [address], 09/03/2022 06:06:36 09/02/19 23 09/03/2022 CBC (INCL UDES DIFF/ PLT) red blood cell count 4.31 regine on/uL 4.20-5 .80 normal Not Available [facility] [place] [facility] [address], [place], [address], 09/03/2022 06:06:36 09/02/1909/03/2022 CBC (INCL UDES DIFF/ PLT) hemoglobin 12.2 g/dL 13.2-1 7.1 low Not Available [facility] [place] [facility] [address], [place], [address], 09/03/2022 06:06:36 09/02/19 23 09/03/2022 CBC (INCL UDES DIFF/ PLT) hematocrit 36.7 % 38.5-5 0.0 low Not Available [facility] [place] [facility] [address], [place], [address], 09/03/2022 06:06:36 09/02/1909/03/2022 CBC (INCL UDES DIFF/ PLT) MCV 85.2 fL 80.0-1 00.0 normal Not Available [facility] [place] [facility] [address], [place], [address], 09/03/2022 06:06:36 09/02/1909/03/2022 CBC (INCL UDES DIFF/ PLT) MCH 28.3 pg 27.0-3 3.0 normal Not Available [facility] [place] [facility] [address], [place], [address], 09/03/2022 06:06:36 09/02/19 23 09/03/2022 CBC (INCL UDES DIFF/ PLT) MCHC 33.2 g/dL 32.0-3 6.0 normal Not Available [facility] [place] [facility] [address], [place], [address], 09/03/2022 06:06:36 09/02/19 23 09/03/2022 CBC (INCL UDES DIFF/ PLT) RDW 13.2 % 11.0-1 5.0 normal Not Available [facility] [place] [facility] [address], [place], [address], 09/03/2022 06:06:36 09/02/1909/03/2022 CBC (INCL UDES DIFF/ PLT) platelet count 216 thous and/u L 140-40 0 normal Not Available [facility] [place] [facility] [address], [place], [address], 09/03/2022 06:06:36 09/02/1909/03/2022 CBC (INCL UDES DIFF/ PLT) MPV 10.6 fL 7.5-12 .5 normal Not Available [facility] [place] [facility] [address], [place], [address], 09/03/2022 06:06:36 09/02/1909/03/2022 CBC (INCL UDES DIFF/ PLT) absolute neutrophils 8370 cells /uL 1500-7 800 high Not Available [facility] [place] [facility] [address], [place], [address], 09/03/2022 06:06:36 09/02/1909/03/2022 CBC (INCL UDES DIFF/ PLT) absolute lymphocytes 950 cells /uL 850-39 00 normal Not Available [facility] [address], [place], [address], 09/03/2022 06:06:36 09/02/19 23 09/03/2022 CBC (INCL UDES DIFF/ PLT) absolute monocytes 171 cells /uL 200-95 0 low Not Available [facility] [place] [facility] [address], [place], [address], 09/03/2022 06:06:36 09/02/19 23 09/03/2022 CBC (INCL UDES DIFF/ PLT) absolute eosinophils 0 cells /uL 15-500 low Not Available [facility] [place] [facility] [address], [place], [address], 09/03/2022 06:06:36 09/02/19 23 09/03/2022 CBC (INCL UDES DIFF/ PLT) absolute basophils 10 cells /uL 0-200 normal Not Available [facility] [place] [facility] [address], [place], [address], 09/03/2022 06:06:36 09/02/19 23 09/03/2022 CBC (INCL UDES DIFF/ PLT) neutrophils 88.1 % normal Not Available [facility] [place] [facility] [address], [place], [address], 09/03/2022 06:06:36 09/02/19 23 09/03/2022 CBC (INCL UDES DIFF/ PLT) lymphocytes 10.0 % normal Not Available [facility] [place] [facility] [address], [place], [address], 09/03/2022 06:06:36 09/02/19 23 09/03/2022 CBC (INCL UDES DIFF/ PLT) monocytes 1.8 % normal Not Available [facility] [place] [facility] [address], [place], [address], 09/03/2022 06:06:36 09/02/19 23 09/03/2022 CBC (INCL UDES DIFF/ PLT) eosinophils 0.0 % normal Not Available [facility] [place] [facility] [address], [place], [address], 09/03/2022 06:06:36 09/02/19 23 09/03/2022 CBC (INCL UDES DIFF/ PLT) basophils 0.1 % normal Not Available [facility] [place] [facility] [address], [place], [address], 09/03/2022 06:06:36 02/27/20 24 02/27/2024 rapid strep group A, throa t rapid strep negati ve Not Available [address], [address], 02/27/2024 09:39:02 02/27/20 24 02/27/2024 rapid flu (A+B) rapid flu negati ve Not Available [address], [address], 02/27/2024 09:39:00 Result Notes None recorded. Problems Name Problem SNOMED Code Status Onset Date Resolution Date Notes Provider Name and Address Organization Details Recorded Time History of substance abuse 880565551 Active Una Caicedo MD [address], [address] , [facility] 7 22:22:36 Problem Notes None recorded. Procedures Surgical History Date Name Laterality Status Provider Name and Address Organization Details Recorded Time 05/26/20 20 Cerumen Removal completed Una Caicedo MD [address], [address], [facility] 05/27/2020 21:07:54 09/03/19 20 cryotherapy surgery completed Una Caicedo MD [address], [address], [facility] 09/03/2019 10:44:31 Tonsillectomy completed [facility] 04/24/2017 09:21:46 Imaging Results None recorded. Procedure Notes None recorded. Medical Equipment None Reported. Allergies Allergen ID Allergen Name Allergen Category Reaction Reaction Severity Criticality Documentation Date Start Date Code Code System Note Provider Name and Address Organization Details Recorded Time 29433 Phenergan medicatio n other moderate Not available 04/24/2017 27539 8 [facility] 7 09:10:26 Medications Name Sig Start Date Stop Date Status Note LastModified by Organization Details LastModified Time amoxicillin 500 mg capsule Take 2 capsule(s ) twice a day for 10 days. 02/23 completed Not Available Not Available Not Available budesonide 32 mcg/actuati on nasal spray Take 1 spray every day by nasal route as needed. 07/08 completed Not Available Not Available Not Available triamcinolo ne acetonide 0.5 % topical cream RUB into affected SKIN TWICE DAILY 04/11 completed Not Available Not Available Not Available azithromyci n 250 mg tablet TAKE 2 TABLETS (500 MG) BY ORAL ROUTE ONCE DAILY FOR 1 DAY THEN 1 TABLET (250 MG) BY ORAL ROUTE ONCE DAILY FOR 4 DAYS 11/13 completed Not Available Not Available Not Available ibuprofen 800 mg tablet Take 1 tablet 3 times a day by oral route. active Not Available Not Available No t Available sulfamethox azole 800 mg-trimetho prim 160 mg tablet Take 1 tablet every 12 hours by oral route. 03/28 completed Not Available Not Available Not Available triamcinolo ne acetonide 0.1 % topical cream APPLY A THIN LAYER TO THE AFFECTED AREA(S) BY TOPICAL ROUTE 2 TIMES PER DAY 11/13 completed Not Available Not Available Not Available ondansetron 8 mg disintegrat ing tablet Place 1 tablet twice a day by transling ual route. 11/13 completed Not Available Not Available Not Available bisoprolol fumarate 5 mg tablet 11/13 completed Not Available Not Available Not Available ceftriaxone 1 gram solution for injection Take 0.5 g by injection route. 2023 active Not Available Not Available Not Avai lable gabapentin 800 mg tablet 1/2 - 1 po tid prn active Not Available Not Available No t Available trazodone 100 mg tablet 1/2 to 1 po daily 08/11 completed Not Available Not Available Not Available cephalexin 500 mg capsule TAKE ONE CAPSULE BY MOUTH FOUR TIMES DAILY 03/28 completed Not Available Not Available Not Available pantoprazol e 40 mg tablet,chacha yed release TAKE 1 TABLET BY MOUTH NEEDED 2023 active Not Available Not Available Not Avai lable oseltamivir 75 mg capsule 11/13 completed Not Available Not Available Not Available magnesium citrate oral solution Drink 1 bottle as directed for bowel prep for 1 DAY 05/26 completed Not Available Not Available Not Available mupirocin 2 % topical ointment APPLY A SMALL AMOUNT TO THE AFFECTED AREA BY TOPICAL ROUTE 3 TIMES PER DAY 11/13 completed Not Available Not Available Not Available dexamethaso ne sodium phosphate 4 mg/mL injection solution Inject 1 mL by intramusc ular route. 2023 active Not Available Not Available Not Avai lable polyethylen e glycol 3350 17 gram/dose oral powder Take 10 capfuls with 32 oz gatorade repeat until bowels run clear for bowel prep for 1 DAY 02/23 completed Not Available Not Available Not Available methylpredn isolone 4 mg tablets in a dose pack TAKE DIRECTED active Not Available Not Available No t Available albuterol sulfate HFA 90 mcg/actuati on aerosol inhaler Inhale 2 puff(s) every 4 hours by inhalatio n route as needed. 07/08 completed Not Available Not Available Not Available cefdinir 300 mg capsule Take 1 capsule every 12 hours by oral route with meal(s) for 7 days. 11/13 completed Not Available Not Available Not Available sertraline 50 mg tablet TAKE 1 TABLET EVERY DAY BY ORAL ROUTE AT BEDTIME. 11/13 completed Not Available Not Available Not Available loratadine 10 mg tablet Take 1 tablet every day by oral route as needed. 07/08 completed Not Available Not Available Not Available amoxicillin 875 mg-potassiu m clavulanate 125 mg tablet TAKE ONE TABLET BY MOUTH EVERY TWELVE HOURS 06/12 completed Not Available Not Available Not Available Metamucil (sugar) oral powder daily sometimes 11/13 completed Not Available Not Available Not Available buprenorphi ne 8 mg-naloxone 2 mg sublingual tablet active Not Available Not Available Not Available cranberry daily 05/26 completed Not Available Not Available Not Available Miralax as needed active Not Available Not Av ailable Not Available multivitami n daily active Not Available Not Available Not Available Dulcolax Stool Softener (dss) daily 05/26 completed Not Available Not Available Not Available Amitiza 24 mcg capsule 08/08 completed Not Available Not Available Not Available Probiotic 1 po daily 07/08 completed Not Available Not Available Not Available buprenorphi ne 8 mg-naloxone 2 mg sublingual film 2&1/2 FILMS BY MOUTH EVERY OTHER DAY ALTERNATI NG WITH 2 EVERY OTHER DAY DIRECTED active Not Available Not Available No t Available Osteo Bi-Flex 1 po daily 07/08 completed Not Available Not Available Not Available melatonin 10 mg tablet Take 2 tablets every day by oral route. 07/08 completed Not Available Not Available Not Available Zubsolv 5.7 mg-1.4 mg sublingual tablet 10/04 completed Not Available Not Available Not Available Movantik 25 mg tablet Take 1 tablet every day by oral route as needed for 30 days. 11/13 completed Not Available Not Available Not Available Sublocade 300 mg/1.5 mL solution,ex tended release subcutaneou s syringe Inject 1.5 mL every month by subcutane ous route. 10/24 completed Not Available Not Available Not Available Vitals Date Recorded Body height Body mass index (BMI) Body weight Heart rate Oxygen saturation Oxygen saturation in Arterial blood by Pulse oximetry Body temperature Systolic blood pressure Diastolic blood pressure Provider Name and Address Organization Details Last Updated DateTime 0 185.42 cm 20.4 kg/m2 62849.3 2 g 74 /min 98 % 98 % 98.4 [degF] 106 mm[Hg] 68 mm[Hg] [facility] 0 09:12:47 Date Recorded Body height Body mass index (BMI) Body weight Heart rate Oxygen saturation Oxygen saturation in Arterial blood by Pulse oximetry Body temperature Systolic blood pressure Diastolic blood pressure Provider Name and Address Organization Details Last Updated DateTime 4 185.42 cm 18.3 kg/m2 24047.8 5 g 83 /min 98 % 98 % 98.6 [degF] 131 mm[Hg] 95 mm[Hg] [facility] 4 09:38:06 Date Recorded Body height Body mass index (BMI) Body weight Heart rate Oxygen saturation Oxygen saturation in Arterial blood by Pulse oximetry Body temperature Systolic blood pressure Diastolic blood pressure Provider Name and Address Organization Details Last Updated DateTime 0 185.42 cm 20.7 kg/m2 88825 g 70 /min 98 % 98 % 98.2 [degF] 137 mm[Hg] 74 mm[Hg] [facility] 0 08:49:12 Date Recorded Body height Body mass index (BMI) Body weight Heart rate Oxygen saturation Oxygen saturation in Arterial blood by Pulse oximetry Body temperature Systolic blood pressure Diastolic blood pressure Provider Name and Address Organization Details Last Updated DateTime 1 185.42 cm 20.5 kg/m2 89873.6 2 g 82 /min 98 % 98 % 98.6 [degF] 123 mm[Hg] 80 mm[Hg] [facility] 1 10:03:34 Date Recorded Body height Body mass index (BMI) Body weight Heart rate Oxygen saturation Oxygen saturation in Arterial blood by Pulse oximetry Body temperature Systolic blood pressure Diastolic blood pressure Provider Name and Address Organization Details Last Updated DateTime 2 185.42 cm 19.9 kg/m2 35817.1 5 g 84 /min 97 % 97 % 98.4 [degF] 118 mm[Hg] 69 mm[Hg] [facility] 2 16:44:35 Social History Question Answer Notes LastModified by Organizat ion Details LastModified Time Tobacco Smoking Status Former Smoker quit cigarettes in 2017 Una Caicedo MD 2017 [facility], [place], [address], [facility] 03/18/2019 14:12:01 What Is Your Level Of Caffeine Consumption? Moderate Information not available 05/27/2020 How Much Tobacco Do You Chew? 1/day Information not available 2021 In The 14 Days Before Symptom Onset, Have You Had Close Contact With A Laboratory-confi rmed COVID-19 While That Case Was Ill? No Information not available 05/27/2020 In The 14 Days Before Symptom Onset, Have You Had Close Contact With A Person Who Is Under Investigation For COVID-19 While That Person Was Ill? No Information not available 05/27/2020 Have You Been To An Area Known To Be High Risk For COVID-19? No Information not available 05/27/2020 What Type Of Diet Are You Following? REGULAR Information not available [address] [place] [address] Information not available 04/24/2017 What Is The Highest Grade Or Level Of School You Have Completed Or The Highest Degree You Have Received? [id number] Information not available 2021 Who Is Your Employer? [employer] Information not available 04/24/2017 Which Of Your Hands Is Dominant? Right Information not available 03/18/2019 Live Alone Or With Others? Alone Information not available 03/18/2019 Marital Status Single Informatio n not available 04/24/2017 What Was The Date Of Your Most Recent Tobacco Screening? 07/08/2022 Information not available 10/24/2022 How Many Children Do You Have? 0 Information not available 04/24/2017 Obese No Information no t available 03/18/2019 What Is Your Relationship Status? Single Information not available 2021 Do You Use Your Seat Belt Or Car Seat Routinely? Yes Information not available 2021 At What Age Did You Start Smoking Tobacco? 14 Information not available 03/18/2019 How Much Tobacco Do You Smoke? No E-cigarettes 20 Per Day Information not available 2021 What Types Of Sporting Activities Do You Participate In? Video Will Information not available 03/18/2019 How Many Years Have You Smoked Tobacco? 15 Information not available 04/24/2017 Sex: Unknown Functional Status Question Answer Note LastModified by Organizat ion Details LastModified Time Do you or have you ever used any other forms of tobacco or nicotine? Yes Information not available 2021 What is your level of alcohol consumption? Occasional Information not available 05/27/2020 Do you or have you ever used smokeless tobacco? Current snuff user occasionally at work Information not available 2021 Are you able to care for yourself? 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 Current user of electronic cigarettes Information not available 2021 What type of noise exposure are you exposed to? Industrial Information not available 03/18/2019 Mental Status Question Answer Note LastModified by Organization D etails LastModified Time Do you feel stressed (tense, restless, nervous, or anxious, or unable to sleep at night)? [id number] Information not available 2021 Family History Relationship Description Onset Age of this Age Resolved Age Notes LastModified by Organization Details LastModified Time Mother Hypertensive disorder Not available 2016 09:16:50 Mother Arthritis Not available 04/24/2017 09:19:06 Maternal Grandmother Alzheimer's disease Not available 2016 09:17:14 Maternal Grandmother Arthritis Not available 04/01 09:19:06 Father Hypertensive disorder Not available 2016 09:17:41 Father Arthritis Not available 04/24/2017 09:19:06 Sister Arthritis Not available 04/24/2017 09:19:06 Medical History Condition Response Coronary Artery Disease N Gout N Kidney Stones N Blood Diseases N Hyperthyroidism N Depression N COPD N Hypothyroidism N Developmental or Behavioral Disorders N Eczema, Hives or other skin conditions N Anxiety Disorder N Muscle, Joint, or Bone Problems N Vision or Eye Problems Y Arthritis N Serious Illness or Injuries N Congenital Anomalies N Cancer N Stroke N Bladder or Kidney Problems N Hospital Admission other than N High Cholesterol N Liver Disease N Fibromyalgia N Kidney Disease N Heart Problems N Ear or Hearing Problems N ADD or ADHD N Thyroid Problems N Skin Problems N Anemia N Constipation Y Diabetes N Bedwetting N Seizures/Epilepsy N Tuberculosis N Diverticulitis N Asthma N Allergies Y GERD/Reflux Y Heart Disease N Pulmonary Embolism N Hypertension N Chicken Pox Y Osteoporosis N Immunizations Vaccine Type Date Status Note Provider Nam e and Address Organization Details Recorded Time Influenza, recombinant, quadrivalent, PF 05/26/2020 completed Not Available [facility] 0 08:54:46 Influenza, recombinant, quadrivalent, PF 04/26/2021 completed Not Available [facility] 1 09:36:41 Influenza, recombinant, quadrivalent, PF 07/08/2022 completed Una Caicedo MD [address], [address], [facility] 07/10/2022 11:24:22 Tdap 02/18/2019 completed Una Caicedo MD [address], [address], [facility] 02/27/2019 15:50:21 COVID-19 vaccine, vector-nr, rS-Ad26, PF, 0.5 mL 10/28/2020 completed [facility] 2021 14:00:42 COVID-19 vaccine, vector-nr, rS-Ad26, PF, 0.5 mL 08/18/2021 completed Una Caicedo MD [address], [address], [facility] 07/08/2022 17:12:37 Past Encounters Encounter ID Performer Location Encounter Start Date Encounter Closed Date Diagnosis/Indication Diagnosis SNOMED-CT Code Diagnosis ICD10 Code Diagnosis Note [id number] Una Caicedo MD [facility] [address] [address] 04/24/2017 09:03:21 05/09/2017 09:12:25 History and physical examination, pre-employment 050422675 Z02.1 Body mass index less than 20 723361821 Z68.1 Impacted cerumen 6472155 6 H61.23 Contact dermatitis 95173 004 L25.9 Serous otitis media 8032 7007 H65.91 [id number] Una Caicedo MD [facility] [address] [place] [address] 06/02/2017 13:38:51 06/05/2017 08:24:32 Acute otitis media 9399441 H65.06 Chronic back pain 036926 002 M54.9 Body mass index less than 20 958750944 Z68.1 [id number] Una Caicedo MD [facility] [address] [address] 03/18/2019 13:20:52 03/20/2019 08:45:27 Adult health examination 256906403 Z00.00 Open wound of hand [address]648 2005 S61.402D Local infe ction of wound 57610006 T14.90XD Drug-induc ed constipation 87117069 K59.03 Body mass index less than 20 684436123 Z68.1 [id number] Una Caicedo MD [facility] [address] [address] 09/03/2019 09:11:34 09/03/2019 14:07:04 Abdominal pain 23288854 R10.9 Hematochezia 438914574 K 92.1 Gastroesop hageal reflux disease 911564250 K21.9 Chronic constipation 236 933512 K59.09 Verruca vulgaris 8966887 3 B07.9 [id number] Una Caicedo MD [facility] [address] [address] 09/13/2019 08:52:03 09/13/2019 11:43:49 Acute sinusitis 95650934 J01.90 Asthmatic bronchitis 405 699662 J45.909 [id number] Una Caicedo MD [facility] [address] [address] 02/24/2020 08:47:49 02/24/2020 13:39:08 Impacted cerumen of bilateral ears 9897301065 031208 H61.23 Winged left scapula 1574 258342 3697708 M21.80 Hypertensi on screening 331025587 Z13.6 [id number] Una Caicedo MD [address] [address] 05/26/2020 08:48:21 05/28/2020 08:16:26 Administration of influenza vaccine 94562857 Z23 Essential hypertension 70911846 I10 Fatigue 44594443 R53.83 Hyperlipidemia 20436279 E78.5 Opioid dep endence in remission 511287846 F11.21 his specialist is considerin g this injection to help him get off the suboxone. Allergic rhinitis 754554 04 J30.9 Gastroesop hageal reflux disease 754453291 K21.9 Adult heal th examination 365061167 Z00.00 Drug-induc ed constipation 56536604 K59.03 Body mass index 20-24 - normal 383820014 Z68.20 [id number] Una Caicedo MD [address] [address] 2021 09:53:30 06/27/2021 16:58:29 Allergic rhinitis 86305617 J30.9 Anxiety disorder 1254142 06 F41.9 Nicotine dependence 5629 4008 F17.200 Adult heal th examination 868353335 Z00.00 Essential hypertension 01450194 I10 Fatigue 69159335 R53.83 Hyperlipidemia 96328323 E78.5 Opioid dep endence in remission [id number] F11.21 his specialist is considerin g this injection to help him get off the suboxone. Gastroesop hageal reflux disease 122305941 K21.9 Drug-induc ed constipation 61223232 K59.03 Body mass index 20-24 - normal 760750806 Z68.20 [id number] Una Caicedo MD [facility] [address] [id number] 07/08/2022 16:24:14 07/11/2022 10:53:44 Administration of influenza vaccine 80253544 Z23 Adult heal th examination 355787212 Z00.00 Allergic rhinitis 300252 04 J30.9 Anxiety disorder 0816615 06 F41.9 Nicotine dependence 5629 4008 F17.200 Essential hypertension 36164289 I10 Fatigue 90016009 R53.83 Hyperlipidemia 07432606 E78.5 Opioid dep endence in remission 075250193 F11.21 his specialist is kimberly rodriguez injection to help him get off the suboxone. Gastroesop hageal reflux disease 219033798 K21.9 Drug-induc ed constipation 77964318 K59.03 Body mass index less than 20 413813787 Z68.1 Atypical chest pain 1025 38283 R07.89 Depression screening 171 966316 Z13.31 [id number] Una Caicedo MD [facility] [address] [id number] 02/27/2024 09:36:58 02/27/2024 11:11:00 Disorder of respiratory system 58854874 J98.9 Acute sero us otitis media of bilateral ears [id number] 126592 H65.03 Health Concerns Section Related Observation LastModified by Organization Detai ls LastModified Time None Recorded Concern Status LastModified by Organization Details LastModified Time None Recorded Advance Directives Directive None Recorded Payers Insurance Date Sequence Insurance Name Policy Number Policy Russell Covered Member ID Russell Member ID Guarantor Name 06/02/2017 1 *SELF PAY* Isabelle Atkins 03/15/2019 1 [employer] (PPO) [id number] Ilan Atkins [id number] Ilan Atkins 02/27/2024 1 [employer] (POS) [id number] Ilan Atkins [id number] Ilan Atkins 02/27/2024 1 [place] [id number] Ilan Atkins [id number] Ilan Atkins Notes Date Note Type Note Provider Name and Address Organization Details Recorded Time 02/24/2020 text/html left winged scap babita Pain chronic and miserable rayne over the left scapular area and upper back He saw Dr Pappas for the winged scapula in 2018 and he could not follow up as he was on second shift and now on 3rd shift he can make doctor appts better. They had discussed that he needed special therapy for this Has recurrent issues with cerumen build up and requires cleaning. The ear syringing bothers him so he requires cureting. Una Caicedo MD [address] [facility], [address], [place], [address], [facility] 02/24/2020 13:37:01 07/08/2022 text/html had covid about 6 weeks ago and had severe vomiting and had to go to ER for fluids Also has been having chest pains that are sharp so he quit drinking red bulls. He has noted heart racing when he was having the pain. He vapes nicotine. He is worried about his heart because of his past history of a lot of drug abuse but never IV although has a lot of tattoos. Now off suboxone and taking the SQ injection of buprenorphine at 300 mg monthly for the next 2 months and will go down to the 100 mg dose and then it will be stopped as he wants off all that. His maternal grandfather at 35 of heart attack. Went to 135 when he had covid Una Caicedo MD [address] [facility], [address], [place], [address], [facility] 07/10/2022 11:39:53 02/27/2024 text/html he has been sick for 2 days and has been very fatigued and yesterday had a temp over 100 and has a headache and he feels bad. No drainage and not coughing He had covid a few weeks ago on 02/06/24 and got a little better for a week and went back to work but has really been feeling poorly with severe fatigue, ear and sinus pressure and fevers. Una Caicedo MD [address] [facility], [address], [place], [address], [facility] 02/27/2024 10:27:27
== END 2025-01-21 23:59 | disposition home or self-care (01) ==
LOC: LAB.DROPOF 01-22 13:52
PROVIDERS: PCP Nurse Practitioner Family; Visit Provider Nurse Practitioner Family
DX: J39.8 Other specified diseases of upper respiratory tract (principal)
CPT/HCPCS: 87636

== ENCOUNTER 2025-01-24 16:22 | Emergency (ER) | payer BC, SELFPAY ==
[2025-01-24 16:37] VITALS: BP 135/80; PULSE 81; RESP 16; TEMP 37.2; O2SAT 96; BMI 19.1
--- OUTSIDE RECORDS SUMMARY | 2025-01-24 16:42 | XMS_ITS | Data Portability ---
Author Organization [facility] Address [address] [place] [address] Care Team Providers Care Gore Maker Name Role Phone LIZZY GOMEZ Referring Provider [phone] MELLISSA HENSON Referring Provider [phone] CJ TERRELL Referring Provider Assessment Encounter Date [...] the opioid. He remains gainfully employeed at [employer] working very long hours. Labs are [...] available Lab rapid flu (A+B) [address], [address] [place], [address], 02/27/2024 09:39:22 rapid strep group A, throat [email or web address], [address] [place], [address], 02/27/2024 09:39:24 lipid panel, serum 2019 020 [facility], [address] [place], [address], 05/27/2020 07:00:03 TSH, serum or plasma 10/27/ 2020 10/27/2 020 [facility], [address] [place], [address], 05/27/2020 07:00:04 CBC w/ auto diff 2019 [facility], [address] [place], [address], 05/27/2020 07:00:04 CMP, serum or plasma 2019 [facility], [address] [place], [address], 05/27/2020 07:00:03 Referral cardiolog ist referral 2021 022 [email or web address] Risa Williamson MD, [address], [address], [place], [address], 03/29/2023 16:58:09 orthopedi c referral 2019 020 [email or web address] 5 Troy Pappas MD ([facility]) , [address] [place], [address], 03/23/2020 15:27:07 Procedures None recorded. Surgeries None recorded. Imaging None recorded. Medication Orders cefdinir 300 mg capsule 2023 025 [facility], [address] [place], [address], 11/13/2024 16:53:14 ceftriaxo ne 1 gram solution for injection 2023 [address] [facility] [facility], [address] [place], [address], 02/27/2024 10:26:50 dexametha sone sodium phosphate 4 mg/mL injection solution 2023 024 [facility], [address], [place], [address], 02/27/2024 10:26:50 pantopraz ole 40 mg tablet,de layed release 2021 [facility]IZ[facility], [address], [place], [address], 07/08/2022 17:40:28 budesonid e 32 mcg/actua tion nasal spray 2020 021 [facility], [address], [place], [address], 07/08/2022 17:23:17 sertralin e 50 mg tablet 2020 021 [facility], [address], [place], [address], 11/13/2024 16:48:36 loratadin e 10 mg tablet 2019 020 [facility], [address], [place], [address], 07/08/2022 17:23:30 pantopraz ole 40 mg tablet,de layed release 2019 020 [facility], [address] [place], [address], 05/26/2020 09:53:00 Patient TargetsNo targets recorded. Patient Instructions Encounter Date Encounter Id Patient Instructions Last Modified By Organization Details Last Modified Time 05/26/2020 [id number] buprenorphine (injection - sublocade) Not available 05/26/2020 09:51:40 2021 [id number] stopping smokele ss tobacco use: care instructions Not available 2021 11:15:55 Quitting Tobacco : Care Instructions Not available 2021 11:15:55 07/08/2022 [id number] stopping smokele ss tobacco use: care instructions Not available 07/08/2022 17:38:21 Quitting Tobacco : Care Instructions brandan Not available 07/08/2022 17:38:20 Reason for Referral Orthopedic Referral for Wing ed left scapula follow up on left winged scapula and associated pain. Last there 2 years ago. 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 Referring Physician: [facility], Encounter Date: 02/24/2020 [employer] Referral for At ypical chest pain Referring Physician: [facility], Encounter Date: 07/08/2022 Results Created Date Observation Date Name Description Value Unit Range Abnormal Flag Note LastModifiedBy Organization Detail LastModifiedTime 03/20/20 20 03/20/2020 patho logy study pathreq Patho logy [address] [place] [address] Phone or [phone] Fax Elvin hastings Jr., M.D., Medic al Dire[facility] [address] : [place] [address] Phone Numbe r: [phone] [phone] Nori moyer M.D. PATHO LOGY REPOR T Patie nt Name: BELL VILLAFUERTE Date of : [birth year] Age/S ex: 34/M Accou nt Numbe r: [id number] Medic al Recor d Numbe r: [id number] Order ing MD: CLOVER CH Date Colle cted : 2019 Date Recei kaylah : 2019 Date Repor kurtis : 2019 Exam: Biops y Acces vero# : [id number] Labor atory #: [id number] 3 Copie s To: Techn ician : [...] [place] [address] BodyS ite GASTR IC BIOPS Y Gross [...] [place] [address] BodyS ite ESOPH NAT, BIOPS Y SubSi [...] red by Nori moyer Jr., M.D. at [facility] r, [address] [place] [address] , CLIA# [id number] . Final Diagn osis CHRON IC NONSP ECIFI C ESOPH AGITI [place] EJT/[place] [address] Legal ly authe ntica kurtis by NORI DUGGAN MD 03-24 11:15 :00 Not Available [facility] [address] [place] [address] [place], [address], 03/24/2020 11:38:06 05/26/2005/27/2020 lipid panel , serum cholesterol, total 214 mg/dL <200 high Not Available [facility] [address] [place], [address], 05/27/2020 07:00:03 05/26/2005/27/2020 lipid panel , serum HDL cholesterol 54 mg/dL > or = 40 normal Not Available [facility] [address] [place], [address], 05/27/2020 07:00:03 05/26/2005/27/2020 lipid panel , serum triglyceride s 337 mg/dL <150 high If a non-f astin g speci men was colle cted, consi karlos repea t trigl yceri de testi ng on a fasti ng speci men if clini itzel indic ated. Darrell alejandra et al. J. of Clin. Lipid ol. 2015; 9:129 -169. Not Available [facility] [address] [place], [address], 05/27/2020 07:00:03 05/26/2005/27/2020 lipid panel , serum [...] 2061- 2068 (http ://ed ucati on.Qu estDi CrowdScannerros tics. com/f aq/FA Q164) Not Available [facility] [address] [facility] [place], [address], 05/27/2020 07:00:03 05/26/2005/27/2020 lipid panel , serum chol/HDLC ratio 4.0 (calc ) <5.0 normal Not Available [facility] [address] [place], [address], 05/27/2020 07:00:03 05/26/2005/27/2020 lipid panel , serum non HDL cholesterol 160 mg/dL _(evonne c) <130 high For patie nts with diabe alice plus 1 major ASCVD risk facto r, treat ing to a non-H DL-C goal of <100 mg/dL (LDL- C of <70 mg/dL ) is consi chrisd a thera peuti c optio n. Not Available [facility] [address] [place], [address], 05/27/2020 07:00:03 05/26/2005/27/2020 CMP, serum or plasm a glucose 82 mg/dL 65-139 normal Non-f astin g refer ence inter caleb Not Available [facility] [address] [place], [address], 05/27/2020 07:00:03 05/26/2005/27/2020 CMP, serum or plasm a urea nitrogen (BUN) 8 mg/dL 7-25 normal Not Available [facility] [address] [place], [address], 05/27/2020 07:00:03 05/26/2005/27/2020 CMP, serum or plasm a creatinine 1.00 mg/dL 0.60-1 .35 normal Not Available [facility] [address] [place], [address], 05/27/2020 07:00:03 05/26/2005/27/2020 CMP, serum or plasm a eGFR non-afr. greenlandic 98 mL/mi n/1.7 3m2 > or = 60 normal Not Available [facility] [address] [facility] [place], [address], 05/27/2020 07:00:03 05/26/20 20 05/27/2020 CMP, serum or plasm a eGFR 113 mL/mi n/1.7 3m2 > or = 60 normal Not Available [facility] [address] [facility] [place], [address], 05/27/2020 07:00:03 05/26/2005/27/2020 CMP, serum or plasm a BUN/creatini ne ratio NOT APPLIC ABLE (calc ) 6-22 Not Available [facility] [address] [place], [address], 05/27/2020 07:00:03 05/26/2005/27/2020 CMP, serum or plasm a sodium 142 mmol/ L 135-14 6 normal Not Available [facility] [address] [place], [address], 05/27/2020 07:00:03 05/26/20 20 05/27/2020 CMP, serum or plasm a potassium 4.5 mmol/ L 3.5-5. 3 normal Not Available [facility] [address] [place], [address], 05/27/2020 07:00:03 05/26/2005/27/2020 CMP, serum or plasm a chloride 104 mmol/ L 98-110 normal Not Available [facility] [address] [facility] [place], [address], 05/27/2020 07:00:03 05/26/2005/27/2020 CMP, serum or plasm a carbon dioxide 33 mmol/ L 20-32 high Not Available [facility] [address] [facility] [place], [address], 05/27/2020 07:00:03 05/26/2005/27/2020 CMP, serum or plasm a calcium 10.1 mg/dL 8.6-10 .3 normal Not Available [facility] [address] [facility] [place], [address], 05/27/2020 07:00:03 05/26/2005/27/2020 CMP, serum or plasm a protein, total 7.1 g/dL 6.1-8. 1 normal Not Available [facility] [address] [facility] [place], [address], 05/27/2020 07:00:03 05/26/2005/27/2020 CMP, serum or plasm a albumin 5.0 g/dL 3.6-5. 1 normal Not Available [facility] [place] [address] [facility] [place], [address], 05/27/2020 07:00:03 05/26/2005/27/2020 CMP, serum or plasm a globulin 2.1 g/dL_ (calc ) 1.9-3. 7 normal Not Available [facility] [address] [facility] [place], [address], 05/27/2020 07:00:03 05/26/2005/27/2020 CMP, serum or plasm a albumin/glob ulin ratio 2.4 (calc ) 1.0-2. 5 normal Not Available [facility] [place], [address], 05/27/2020 07:00:03 05/26/2005/27/2020 CMP, serum or plasm a bilirubin, total 0.3 mg/dL 0.2-1. 2 normal Not Available [facility] [place], [address], 05/27/2020 07:00:03 05/26/202020 CMP, serum or plasm a alkaline phosphatase 64 U/L 36-130 normal Not Available [facility] [employer] [facility] [address] [facility] [place], [address], 05/27/2020 07:00:03 05/26/2005/27/2020 CMP, serum or plasm a AST 28 U/L 10-40 normal Not Available [facility] [address] [facility] [place], [address], 05/27/2020 07:00:03 05/26/2005/27/2020 CMP, serum or plasm a ALT 25 U/L 9-46 normal Not Available [facility] [place], [address], 05/27/2020 07:00:03 05/26/2005/27/2020 TSH, serum or plasm a TSH 2.05 mIU/L 0.40-4 .50 normal Not Available [employer] [facility] [address] [facility] [place], [address], 05/27/2020 07:00:04 05/26/2005/27/2020 CBC w/ auto diff white blood cell count 8.2 thous and/u L 3.8-10 .8 normal Not Available [employer] [facility] [address] [place], [place] [address], [address], 05/27/2020 07:00:04 05/26/2005/27/2020 CBC w/ auto diff red blood cell count 4.37 regine on/uL 4.20-5 .80 normal Not Available [employer] [facility] [place], [address], 05/27/2020 07:00:04 05/26/2005/27/2020 CBC w/ auto diff hemoglobin 12.7 g/dL 13.2-1 7.1 low Not Available [employer] [facility] [address] [place], [place] [address], [address], 05/27/2020 07:00:04 05/26/2005/27/2020 CBC w/ auto diff hematocrit 37.9 % 38.5-5 0.0 low Not Available [facility] [address] [facility] [place], [address], 05/27/2020 07:00:04 05/26/2005/27/2020 CBC w/ auto diff MCV 86.7 fL 80.0-1 00.0 normal Not Available [facility] [address] [facility] [place], [address], 05/27/2020 07:00:04 05/26/2005/27/2020 CBC w/ auto diff MCH 29.1 pg 27.0-3 3.0 normal Not Available [facility] [address] [facility] [place], [address], 05/27/2020 07:00:04 05/26/2005/27/2020 CBC w/ auto diff MCHC 33.5 g/dL 32.0-3 6.0 normal Not Available [facility] [address] [facility] [place], [address], 05/27/2020 07:00:04 05/26/2005/27/2020 CBC w/ auto diff RDW 13.0 % 11.0-1 5.0 normal Not Available [facility] [address] [facility] [place], [address], 05/27/2020 07:00:04 05/26/2005/27/2020 CBC w/ auto diff platelet count 230 thous and/u L 140-40 0 normal Not Available [facility] [address] [facility] [place], [address], 05/27/2020 07:00:04 05/26/2005/27/2020 CBC w/ auto diff MPV 10.4 fL 7.5-12 .5 normal Not Available [facility] [address] [place], [address], 05/27/2020 07:00:04 05/26/20 20 05/27/2020 CBC w/ auto diff absolute neutrophils 3838 cells /uL 1500-7 800 normal Not Available [facility] [address], [place], [address], 05/27/2020 07:00:04 05/26/2005/27/2020 CBC w/ auto diff absolute lymphocytes 3387 cells /uL 850-39 00 normal Not Available [facility] [address], [place], [address], 05/27/2020 07:00:04 05/26/2005/27/2020 CBC w/ auto diff absolute monocytes 631 cells /uL 200-95 0 normal Not Available [facility] [address], [place], [address], 05/27/2020 07:00:04 05/26/2005/27/2020 CBC w/ auto diff absolute eosinophils 303 cells /uL 15-500 normal Not Available [facility] [address], [place], [address], 05/27/2020 07:00:04 05/26/2005/27/2020 CBC w/ auto diff absolute basophils 41 cells /uL 0-200 normal Not Available [facility] [address], [place], [address], 05/27/2020 07:00:04 05/26/2005/27/2020 CBC w/ auto diff neutrophils 46.8 % normal Not Available [facility] [address], [place], [address], 05/27/2020 07:00:04 05/26/2005/27/2020 CBC w/ auto diff lymphocytes 41.3 % normal Not Available [facility] [address] [place], [address], 05/27/2020 07:00:04 05/26/20 20 05/27/2020 CBC w/ auto diff monocytes 7.7 % normal Not Available [facility] [address] [place], [address], 05/27/2020 07:00:04 05/26/20 20 05/27/2020 CBC w/ auto diff eosinophils 3.7 % normal Not Available [facility] [address] [place], [address], 05/27/2020 07:00:04 05/26/2005/27/2020 CBC w/ auto diff basophils 0.5 % normal Not Available [facility] [address] [place], [address], 05/27/2020 07:00:04 06/21/20 21 06/22/2021 LIPID PANEL , STAND CIERRA cholesterol, total 198 mg/dL <200 normal Not Available [facility] [address] [place], [address], 06/22/2021 07:14:16 06/21/20 21 06/22/2021 LIPID PANEL , STAND CIERRA HDL cholesterol 53 mg/dL > or = 40 normal Not Available [facility] [address] [place], [address], 06/22/2021 07:14:16 06/21/20 21 06/22/2021 LIPID PANEL , STAND CIERRA triglyceride s 259 mg/dL <150 high If a non-f astin g speci men was colle cted, consi karlos repea t trigl yceri de testi ng on a fasti ng speci men if clini itzel indic ated. Darrell alejandra et al. J. of Clin. Lipid ol. 2015; 9:129 -169. Not Available [facility] [address], [place], [address], 06/22/2021 07:14:16 06/21/20 21 06/22/2021 LIPID PANEL [...] 2061- 2068 (http ://ed ucati on.Qu [employer]. com/f aq/FA Q164) Not Available [facility] [address], [place], [address], 06/22/2021 07:14:16 06/21/2006/22/2021 LIPID PANEL , STAND CIERRA chol/HDLC ratio 3.7 (calc ) <5.0 normal Not Available [facility] [address], [place], [address], 06/22/2021 07:14:16 06/21/20 21 06/22/2021 LIPID PANEL , STAND CIERRA non HDL cholesterol 145 mg/dL _(evonne c) <130 high For patie nts with diabe alice plus 1 major ASCVD risk facto r, treat ing to a non-H DL-C goal of <100 mg/dL (LDL- C of <70 mg/dL ) is consi chrisd a rafat spring optio n. Not Available [facility] [address], [place], [address], 06/22/2021 07:14:16 06/21/20 21 06/22/2021 COMPR EHENS SEDRICK METAB OLIC PANEL glucose 91 mg/dL 65-139 normal Non-f astin g refer ence inter caleb Not Available [facility] [address] [place], [address], 06/22/2021 07:14:16 06/21/20 21 06/22/2021 COMPR EHENS SEDRICK METAB OLIC PANEL urea nitrogen (BUN) 10 mg/dL 7-25 normal Not Available [facility] [address] [place], [address], 06/22/2021 07:14:16 06/21/20 21 06/22/2021 COMPR EHENS SEDRICK METAB OLIC PANEL creatinine 1.02 mg/dL 0.60-1 .35 normal Not Available [facility] [address] [place], [address], 06/22/2021 07:14:16 06/21/20 21 06/22/2021 COMPR EHENS SEDRICK METAB OLIC PANEL eGFR non-afr. greenlandic 94 mL/mi n/1.7 3m2 > or = 60 normal Not Available [facility] [address] [facility] [place], [address], 06/22/2021 07:14:16 06/21/20 21 06/22/2021 COMPR EHENS SEDRICK METAB OLIC PANEL eGFR 109 mL/mi n/1.7 3m2 > or = 60 normal Not Available [facility] [address] [facility] [place], [address], 06/22/2021 07:14:16 06/21/20 21 06/22/2021 COMPR EHENS SEDRICK METAB OLIC PANEL BUN/creatini ne ratio NOT APPLIC ABLE (calc ) 6-22 Not Available [facility] [address] [place], [address], 06/22/2021 07:14:16 06/21/20 21 06/22/2021 COMPR EHENS SEDRICK METAB OLIC PANEL sodium 140 mmol/ L 135-14 6 normal Not Available [facility] [address] [place], [address], 06/22/2021 07:14:16 06/21/20 21 06/22/2021 COMPR EHENS SEDRICK METAB OLIC PANEL potassium 4.5 mmol/ L 3.5-5. 3 normal Not Available [facility] [address] [place], [address], 06/22/2021 07:14:16 06/21/20 21 06/22/2021 COMPR EHENS SEDRICK METAB OLIC PANEL chloride 101 mmol/ L 98-110 normal Not Available [facility] [address] [place], [address], 06/22/2021 07:14:16 06/21/20 21 06/22/2021 COMPR EHENS SEDRICK METAB OLIC PANEL carbon dioxide 36 mmol/ L 20-32 high Not Available [facility] [address] [place], [address], 06/22/2021 07:14:16 06/21/20 21 06/22/2021 COMPR EHENS SEDRICK METAB OLIC PANEL calcium 10.1 mg/dL 8.6-10 .3 normal Not Available [facility] [address] [place], [address], 06/22/2021 07:14:16 06/21/20 21 06/22/2021 COMPR EHENS SEDRICK METAB OLIC PANEL protein, total 7.2 g/dL 6.1-8. 1 normal Not Available [facility] [address] [place], [address], 06/22/2021 07:14:16 06/21/20 21 06/22/2021 COMPR EHENS SEDRICK METAB OLIC PANEL albumin 5.1 g/dL 3.6-5. 1 normal Not Available [facility] [address] [place], [address], 06/22/2021 07:14:16 06/21/20 21 06/22/2021 COMPR EHENS SEDRICK METAB OLIC PANEL globulin 2.1 g/dL_ (calc ) 1.9-3. 7 normal Not Available [facility] [address] [place], [address], 06/22/2021 07:14:16 06/21/20 21 06/22/2021 COMPR EHENS SEDRICK METAB OLIC PANEL albumin/glob ulin ratio 2.4 (calc ) 1.0-2. 5 normal Not Available [facility] [address] [place], [address], 06/22/2021 07:14:16 06/21/20 21 06/22/2021 COMPR EHENS SEDRICK METAB OLIC PANEL bilirubin, total 0.3 mg/dL 0.2-1. 2 normal Not Available [facility] [address] [place], [address], 06/22/2021 07:14:16 06/21/20 21 06/22/2021 COMPR EHENS SEDRICK METAB OLIC PANEL alkaline phosphatase 66 U/L 36-130 normal Not Available [facility] [address] [place], [address], 06/22/2021 07:14:16 06/21/20 21 06/22/2021 COMPR EHENS SEDRICK METAB OLIC PANEL AST 20 U/L 10-40 normal Not Available [facility] [employer] [facility] [address] [place] [address], [address], 06/22/2021 07:14:16 06/21/20 21 06/22/2021 COMPR EHENS SEDRICK METAB OLIC PANEL ALT 15 U/L 9-46 normal Not Available [facility] [address] [place], [address], 06/22/2021 07:14:16 06/21/20 21 06/22/2021 TSH TSH 1.25 mIU/L 0.40-4 .50 normal Not Available [facility] [address] [place], [address], 06/22/2021 07:14:16 06/21/20 21 06/22/2021 CBC (INCL UDES DIFF/ PLT) white blood cell count 6.8 thous and/u L 3.8-10 .8 normal Not Available [facility] [address] [place], [address], 06/22/2021 07:14:17 06/21/20 21 06/22/2021 CBC (INCL UDES DIFF/ PLT) red blood cell count 4.87 regine on/uL 4.20-5 .80 normal Not Available [facility] [address] [place], [address], 06/22/2021 07:14:17 06/21/20 21 06/22/2021 CBC (INCL UDES DIFF/ PLT) hemoglobin 13.7 g/dL 13.2-1 7.1 normal Not Available [facility] [address] [place], [address], 06/22/2021 07:14:17 06/21/20 21 06/22/2021 CBC (INCL UDES DIFF/ PLT) hematocrit 41.4 % 38.5-5 0.0 normal Not Available [facility] [address] [place], [address], 06/22/2021 07:14:17 06/21/20 21 06/22/2021 CBC (INCL UDES DIFF/ PLT) MCV 85.0 fL 80.0-1 00.0 normal Not Available [facility] [address] [facility] [place], [address], 06/22/2021 07:14:17 06/21/20 21 06/22/2021 CBC (INCL UDES DIFF/ PLT) MCH 28.1 pg 27.0-3 3.0 normal Not Available [facility] [address] [facility] [place], [address], 06/22/2021 07:14:17 06/21/20 21 06/22/2021 CBC (INCL UDES DIFF/ PLT) MCHC 33.1 g/dL 32.0-3 6.0 normal Not Available [facility] [address] [facility] [place], [address], 06/22/2021 07:14:17 06/21/20 21 06/22/2021 CBC (INCL UDES DIFF/ PLT) RDW 13.3 % 11.0-1 5.0 normal Not Available [facility] [address] [facility] [place], [address], 06/22/2021 07:14:17 06/21/20 21 06/22/2021 CBC (INCL UDES DIFF/ PLT) platelet count 253 thous and/u L 140-40 0 normal Not Available [facility] [address] [facility] [place], [address], 06/22/2021 07:14:17 06/21/20 21 06/22/2021 CBC (INCL UDES DIFF/ PLT) MPV 10.5 fL 7.5-12 .5 normal Not Available [facility] [address] [facility] [place], [address], 06/22/2021 07:14:17 06/21/20 21 06/22/2021 CBC (INCL UDES DIFF/ PLT) absolute neutrophils 3631 cells /uL 1500-7 800 normal Not Available [facility] [address], [place], [address], 06/22/2021 07:14:17 06/21/20 21 06/22/2021 CBC (INCL UDES DIFF/ PLT) absolute lymphocytes 2346 cells /uL 850-39 00 normal Not Available [facility] [address], [place], [address], 06/22/2021 07:14:17 06/21/20 21 06/22/2021 CBC (INCL UDES DIFF/ PLT) absolute monocytes 517 cells /uL 200-95 0 normal Not Available [facility] [place] [facility] [address], [place], [address], 06/22/2021 07:14:17 06/21/20 21 06/22/2021 CBC (INCL UDES DIFF/ PLT) absolute eosinophils 279 cells /uL 15-500 normal Not Available [facility] [place] [facility] [address], [place], [address], 06/22/2021 07:14:17 06/21/20 21 06/22/2021 CBC (INCL UDES DIFF/ PLT) absolute basophils 27 cells /uL 0-200 normal Not Available [facility] [place] [facility] [address], [place], [address], 06/22/2021 07:14:17 06/21/20 21 06/22/2021 CBC (INCL UDES DIFF/ PLT) neutrophils 53.4 % normal Not Available [facility] [place] [facility] [address], [place], [address], 06/22/2021 07:14:17 06/21/20 21 06/22/2021 CBC (INCL UDES DIFF/ PLT) lymphocytes 34.5 % normal Not Available [facility] [place] [facility] [address], [place], [address], 06/22/2021 07:14:17 06/21/20 21 06/22/2021 CBC (INCL UDES DIFF/ PLT) monocytes 7.6 % normal Not Available [facility] [place] [facility] [address] [facility] [place], [address], 06/22/2021 07:14:17 06/21/20 21 06/22/2021 CBC (INCL UDES DIFF/ PLT) eosinophils 4.1 % normal Not Available [facility] [place] [facility] [address] [facility] [facility], [place], [address], 06/22/2021 07:14:17 06/21/20 21 06/22/2021 CBC (INCL UDES DIFF/ PLT) basophils 0.4 % normal Not Available [facility] [place] [facility] [address] [facility], [place], [address], 06/22/2021 07:14:17 07/01/20 22 07/02/2022 LIPID PANEL , STAND CIERRA cholesterol, total 222 mg/dL <200 high Not Available [facility] [place] [facility] [address] [facility] [place], [address], 07/02/2022 11:41:30 07/01/20 22 07/02/2022 LIPID PANEL , STAND CIERRA HDL cholesterol 48 mg/dL > or = 40 normal Not Available [facility] [place] [facility] [address] [facility] [place], [address], 07/02/2022 11:41:30 07/01/20 22 07/02/2022 LIPID PANEL , STAND CIERRA triglyceride s 281 mg/dL <150 high If a non-f astin g speci men was colle cted, consi karlos repea t trigl yceri de testi ng on a fasti ng speci men if clini itzel indic ated. Darrell alejandra et al. J. of Clin. Lipid ol. 2015; 9:129 -169. Not Available [facility] [place] [facility] [address] [facility] [place], [address], 07/02/2022 11:41:30 12/02/20 22 07/02/2022 LIPID PANEL [...] 9): 2061- 2068 (http ://ed ucati on.Qu estSport Ngin. com/f aq/FA Q164) Not Available [facility] [place] [facility] [address], [place], [address], 07/02/2022 11:41:30 07/01/20 22 07/02/2022 LIPID PANEL , STAND CIERRA chol/HDLC ratio 4.6 (calc ) <5.0 normal Not Available [facility] [place] [facility] [address], [place], [address], 07/02/2022 11:41:30 07/01/20 22 07/02/2022 LIPID PANEL , STAND CIERRA non HDL cholesterol 174 mg/dL _(evonne c) <130 high For patie nts with diabe alice plus 1 major ASCVD risk facto r, treat ing to a non-H DL-C goal of <100 mg/dL (LDL- C of <70 mg/dL ) is consi chrisd a therlanie temple c optio n. Not Available [facility] [place] [facility] [address], [place], [address], 07/02/2022 11:41:30 07/01/20 22 07/02/2022 COMPR EHENS SEDRICK METAB OLIC PANEL glucose 93 mg/dL 65-139 normal Non-f astin g refer ence inter caleb Not Available [facility] [place] [facility] [address] [place], [address], 07/02/2022 11:41:31 07/01/20 22 07/02/2022 COMPR EHENS SEDRICK METAB OLIC PANEL urea nitrogen (BUN) 14 mg/dL 7-25 normal Not Available [facility] [address] [place], [address], 07/02/2022 11:41:31 07/01/20 22 07/02/2022 COMPR EHENS SEDRICK METAB OLIC PANEL creatinine 1.15 mg/dL 0.60-1 .26 normal Not Available [facility] [address] [place], [address], 07/02/2022 11:41:31 07/01/20 22 07/02/2022 COMPR EHENS [...] 5Fcal culat or Not Available [facility] [address] [place], [address], 07/02/2022 11:41:31 07/01/20 22 07/02/2022 COMPR EHENS SEDRICK METAB OLIC PANEL BUN/creatini ne ratio NOT APPLIC ABLE (calc ) 6-22 Not Available [facility] [place] [facility] [address] [place], [address], 07/02/2022 11:41:31 07/01/20 22 07/02/2022 COMPR EHENS SEDRICK METAB OLIC PANEL sodium 142 mmol/ L 135-14 6 normal Not Available [facility] [place] [facility] [address] [place], [address], 07/02/2022 11:41:31 07/01/20 22 07/02/2022 COMPR EHENS SEDRICK METAB OLIC PANEL potassium 4.0 mmol/ L 3.5-5. 3 normal Not Available [facility] [address] [facility] [place], [address], 07/02/2022 11:41:31 07/01/20 22 07/02/2022 COMPR EHENS SEDRICK METAB OLIC PANEL chloride 103 mmol/ L 98-110 normal Not Available [facility] [address] [facility] [place] [place], [address], 07/02/2022 11:41:31 07/01/20 22 07/02/2022 COMPR EHENS SEDRICK METAB OLIC PANEL carbon dioxide 34 mmol/ L 20-32 high Not Available [facility] [address] [facility] [place], [address], 07/02/2022 11:41:31 07/01/20 22 07/02/2022 COMPR EHENS SEDRICK METAB OLIC PANEL calcium 10.0 mg/dL 8.6-10 .3 normal Not Available [facility] [address] [facility] [place], [address], 07/02/2022 11:41:31 07/01/20 22 07/02/2022 COMPR EHENS SEDRICK METAB OLIC PANEL protein, total 7.1 g/dL 6.1-8. 1 normal Not Available [facility] [address] [place], [address], 07/02/2022 11:41:31 07/01/20 22 07/02/2022 COMPR EHENS SEDRICK METAB OLIC PANEL albumin 5.0 g/dL 3.6-5. 1 normal Not Available [facility] [facility] [address] [facility] [place], [address], 07/02/2022 11:41:31 07/01/20 22 07/02/2022 COMPR EHENS SEDRICK METAB OLIC PANEL globulin 2.1 g/dL_ (calc ) 1.9-3. 7 normal Not Available [facility] [address], [place], [address], 07/02/2022 11:41:31 07/01/20 22 07/02/2022 COMPR EHENS SEDRICK METAB OLIC PANEL albumin/glob ulin ratio 2.4 (calc ) 1.0-2. 5 normal Not Available [facility] [employer] [facility] [address], [place], [address], 07/02/2022 11:41:31 07/01/20 22 07/02/2022 COMPR EHENS SEDRICK METAB OLIC PANEL bilirubin, total 0.3 mg/dL 0.2-1. 2 normal Not Available [facility] [employer] [facility] [address], [place], [address], 07/02/2022 11:41:31 07/01/20 22 07/02/2022 COMPR EHENS SEDRICK METAB OLIC PANEL alkaline phosphatase 81 U/L 36-130 normal Not Available [facility] [employer] [facility] [address], [place], [address], 07/02/2022 11:41:31 07/01/20 22 07/02/2022 COMPR EHENS SEDRICK METAB OLIC PANEL AST 22 U/L 10-40 normal Not Available [facility] [employer] [facility] [address], [place], [address], 07/02/2022 11:41:31 07/01/20 22 07/02/2022 COMPR EHENS SEDRICK METAB OLIC PANEL ALT 16 U/L 9-46 normal Not Available [employer] [facility] [address], [place], [address], 07/02/2022 11:41:31 07/01/20 22 07/02/2022 TSH TSH 5.33 mIU/L 0.40-4 .50 high Not Available [facility] [place] [facility] [address] [place], [address], 07/02/2022 11:41:32 07/01/20 22 07/02/2022 CBC (INCL UDES DIFF/ PLT) white blood cell count 9.8 thous and/u L 3.8-10 .8 normal Not Available [facility] [place] [facility] [address] [place], [address], 07/02/2022 11:41:32 07/01/20 22 07/02/2022 CBC (INCL UDES DIFF/ PLT) red blood cell count 4.39 regine on/uL 4.20-5 .80 normal Not Available [facility] [address] [facility] [place], [address], 07/02/2022 11:41:32 07/01/20 22 07/02/2022 CBC (INCL UDES DIFF/ PLT) hemoglobin 12.6 g/dL 13.2-1 7.1 low Not Available [facility] [place] [facility] [address] [place], [address], 07/02/2022 11:41:32 07/01/20 22 07/02/2022 CBC (INCL UDES DIFF/ PLT) hematocrit 37.3 % 38.5-5 0.0 low Not Available [facility] [address] [place], [address], 07/02/2022 11:41:32 07/01/20 22 07/02/2022 CBC (INCL UDES DIFF/ PLT) MCV 85.0 fL 80.0-1 00.0 normal Not Available [facility] [address] [place], [address], 07/02/2022 11:41:32 07/01/20 22 07/02/2022 CBC (INCL UDES DIFF/ PLT) MCH 28.7 pg 27.0-3 3.0 normal Not Available [facility] [place] [facility] [address] [facility] [place] [place], [address], 07/02/2022 11:41:32 07/01/20 22 07/02/2022 CBC (INCL UDES DIFF/ PLT) MCHC 33.8 g/dL 32.0-3 6.0 normal Not Available [facility] [place] [facility] [address] [facility] [place] [place], [address], 07/02/2022 11:41:32 07/01/20 22 07/02/2022 CBC (INCL UDES DIFF/ PLT) RDW 13.5 % 11.0-1 5.0 normal Not Available [facility] [place] [facility] [address] [facility] [place], [address], 07/02/2022 11:41:32 07/01/20 22 07/02/2022 CBC (INCL UDES DIFF/ PLT) platelet count 216 thous and/u L 140-40 0 normal Not Available [facility] [place] [facility] [address] [facility] [address] [facility], [place], [address], 07/02/2022 11:41:32 07/01/20 22 07/02/2022 CBC (INCL UDES DIFF/ PLT) MPV 10.8 fL 7.5-12 .5 normal Not Available [facility] [place] [facility] [address] [facility] [place] [place], [address], 07/02/2022 11:41:32 07/01/20 22 07/02/2022 CBC (INCL UDES DIFF/ PLT) absolute neutrophils 5635 cells /uL 1500-7 800 normal Not Available [facility] [address] [facility], [place], [address], 07/02/2022 11:41:32 07/01/20 22 07/02/2022 CBC (INCL UDES DIFF/ PLT) absolute lymphocytes 3136 cells /uL 850-39 00 normal Not Available [facility] [place] [facility] [address], [place], [address], 07/02/2022 11:41:32 07/01/20 22 07/02/2022 CBC (INCL UDES DIFF/ PLT) absolute monocytes 608 cells /uL 200-95 0 normal Not Available [facility] [place] [facility] [address], [place], [address], 07/02/2022 11:41:32 07/01/20 22 07/02/2022 CBC (INCL UDES DIFF/ PLT) absolute eosinophils 382 cells /uL 15-500 normal Not Available [facility] [place] [facility] [address], [place], [address], 07/02/2022 11:41:32 07/01/20 22 07/02/2022 CBC (INCL UDES DIFF/ PLT) absolute basophils 39 cells /uL 0-200 normal Not Available [facility] [place] [facility] [address], [place], [address], 07/02/2022 11:41:32 07/01/20 22 07/02/2022 CBC (INCL UDES DIFF/ PLT) neutrophils 57.5 % normal Not Available [facility] [place] [facility] [address], [place], [address], 07/02/2022 11:41:32 07/01/20 22 07/02/2022 CBC (INCL UDES DIFF/ PLT) lymphocytes 32.0 % normal Not Available [facility] [place] [facility] [address], [place], [address], 07/02/2022 11:41:32 07/01/20 22 07/02/2022 CBC (INCL UDES DIFF/ PLT) monocytes 6.2 % normal Not Available [facility] [place] [facility] [address], [place], [address], 07/02/2022 11:41:32 07/01/20 22 07/02/2022 CBC (INCL UDES DIFF/ PLT) eosinophils 3.9 % normal Not Available [facility] [place] [facility] [address], [place], [address], 07/02/2022 11:41:32 07/01/20 22 07/02/2022 CBC (INCL UDES DIFF/ PLT) basophils 0.4 % normal Not Available [facility] [place] [facility] [address], [place], [address], 07/02/2022 11:41:32 09/02/19 23 09/03/2022 LIPID PANEL , STAND CIERRA cholesterol, total 208 mg/dL <200 high Not Available [facility] [place] [facility] [address] [facility], [place], [address], 09/03/2022 06:06:34 09/02/19 23 09/03/2022 LIPID PANEL , STAND CIERRA HDL cholesterol 54 mg/dL > or = 40 normal Not Available [facility] [place] [facility] [address] [facility], [place], [address], 09/03/2022 06:06:34 09/02/19 23 09/03/2022 LIPID PANEL , STAND CIERRA triglyceride s 38 mg/dL <150 normal Not Available [facility] [place] [facility] [address] [facility], [place], [address], 09/03/2022 06:06:34 09/02/19 23 09/03/2022 LIPID PANEL [...] anthony r accur acy than the Fried acro equat ion in the estim ation of LDL-C . Jessica n SS et al. VICKIE. 2013; 310(1 9): 2061- 2068 (http ://ed razati on.Qu Endy tylerDataStax. com/f aq/FA Q164) Not Available [facility] [place] [facility] [address] [facility], [place], [address], 09/03/2022 06:06:34 09/02/19 23 09/03/2022 LIPID PANEL , STAND CIERRA chol/HDLC ratio 3.9 (calc ) <5.0 normal Not Available [facility] [place] [facility] [address] [facility], [place], [address], 09/03/2022 06:06:34 09/02/19 23 09/03/2022 LIPID PANEL , STAND CIERRA non HDL cholesterol 154 mg/dL _(evonne c) <130 high For patie nts with diabe alice plus 1 major ASCVD risk facto r, treat ing to a non-H DL-C goal of <100 mg/dL (LDL- C of <70 mg/dL ) is consi srinivas francoiso n. Not Available [facility] [place] [facility] [address] [facility], [place], [address], 09/03/2022 06:06:34 09/02/1909/03/2022 COMPR EHENS SEDRICK METAB OLIC PANEL glucose 126 mg/dL 65-99 high Fasti ng refer ence inter caleb For someo ne witho ut known diabe alice, a gluco se value >125 mg/dL indic ates that they may have diabe alice and this shoul d be confi rmed with a follo w-up test. Not Available [facility] [place] [facility] [address] [facility], [place], [address], 09/03/2022 06:06:35 09/02/19 23 09/03/2022 COMPR EHENS SEDRICK METAB OLIC PANEL urea nitrogen (BUN) 16 mg/dL 7-25 normal Not Available [employer] [facility] [address] [facility] [place], [address], 09/03/2022 06:06:35 09/02/19 23 09/03/2022 COMPR EHENS SEDRICK METAB OLIC PANEL creatinine 0.94 mg/dL 0.60-1 .26 normal Not Available [employer] [facility] [address] [place], [address], 09/03/2022 06:06:35 09/02/19 23 09/03/2022 COMPR EHENS [...] kdoqi /gfr% 5Fcal culat or Not Available [facility] [address] [place], [address], 09/03/2022 06:06:35 09/02/19 23 09/03/2022 COMPR EHENS SEDRICK METAB OLIC PANEL BUN/creatini ne ratio NOT APPLIC ABLE (calc ) 6-22 Not Available [facility] [address] [place], [address], 09/03/2022 06:06:35 09/02/19 23 09/03/2022 COMPR EHENS SEDRICK METAB OLIC PANEL sodium 139 mmol/ L 135-14 6 normal Not Available [facility] [address] [place], [address], 09/03/2022 06:06:35 09/02/19 23 09/03/2022 COMPR EHENS SEDRICK METAB OLIC PANEL potassium 4.2 mmol/ L 3.5-5. 3 normal Not Available [facility] [address] [facility] [place], [address], 09/03/2022 06:06:35 09/02/19 23 09/03/2022 COMPR EHENS SEDRICK METAB OLIC PANEL chloride 103 mmol/ L 98-110 normal Not Available [facility] [address] [facility] [place], [address], 09/03/2022 06:06:35 09/02/19 23 09/03/2022 COMPR EHENS SEDRICK METAB OLIC PANEL carbon dioxide 28 mmol/ L 20-32 normal Not Available [facility] [address] [facility] [place], [address], 09/03/2022 06:06:35 09/02/19 23 09/03/2022 COMPR EHENS SEDRICK METAB OLIC PANEL calcium 9.6 mg/dL 8.6-10 .3 normal Not Available [facility] [address] [facility] [place], [address], 09/03/2022 06:06:35 09/02/19 23 09/03/2022 COMPR EHENS SEDRICK METAB OLIC PANEL protein, total 7.0 g/dL 6.1-8. 1 normal Not Available [facility] [address] [facility] [place], [address], 09/03/2022 06:06:35 09/02/19 23 09/03/2022 COMPR EHENS SEDRICK METAB OLIC PANEL albumin 5.0 g/dL 3.6-5. 1 normal Not Available [facility] [address] [facility] [place], [address], 09/03/2022 06:06:35 09/02/19 23 09/03/2022 COMPR EHENS SEDRICK METAB OLIC PANEL globulin 2.0 g/dL_ (calc ) 1.9-3. 7 normal Not Available [facility] [address] [facility] [place], [address], 09/03/2022 06:06:35 09/02/19 23 09/03/2022 COMPR EHENS SEDRICK METAB OLIC PANEL albumin/glob ulin ratio 2.5 (calc ) 1.0-2. 5 normal Not Available [employer] [facility] [address] [facility] [place], [address], 09/03/2022 06:06:35 09/02/19 23 09/03/2022 COMPR EHENS SEDRICK METAB OLIC PANEL bilirubin, total 0.3 mg/dL 0.2-1. 2 normal Not Available [facility] [address] [place], [address], 09/03/2022 06:06:35 09/02/19 23 09/03/2022 COMPR EHENS SEDRICK METAB OLIC PANEL alkaline phosphatase 70 U/L 36-130 normal Not Available [facility] [employer] [facility] [address] [facility] [place], [address], 09/03/2022 06:06:35 09/02/19 23 09/03/2022 COMPR EHENS SEDRICK METAB OLIC PANEL AST 21 U/L 10-40 normal Not Available [facility] [employer] [facility] [address] [facility] [place], [address], 09/03/2022 06:06:35 09/02/19 23 09/03/2022 COMPR EHENS SEDRICK METAB OLIC PANEL ALT 11 U/L 9-46 normal Not Available [employer] [facility] [address] [facility] [place], [address], 09/03/2022 06:06:35 09/02/19 23 09/03/2022 TSH TSH 0.97 mIU/L 0.40-4 .50 normal Not Available [employer] [facility] [address] [facility] [place], [address], 09/03/2022 06:06:35 09/02/19 23 09/03/2022 CBC (INCL UDES DIFF/ PLT) white blood cell count 9.5 thous and/u L 3.8-10 .8 normal Not Available [facility] [place] [facility] [address], [place], [address], 09/03/2022 06:06:36 09/02/19 23 09/03/2022 CBC (INCL UDES DIFF/ PLT) red blood cell count 4.31 regine on/uL 4.20-5 .80 normal Not Available [facility] [place] [facility] [address], [place], [address], 09/03/2022 06:06:36 09/02/1909/03/2022 CBC (INCL UDES DIFF/ PLT) hemoglobin 12.2 g/dL 13.2-1 7.1 low Not Available [facility] [place] [facility] [address], [place], [address], 09/03/2022 06:06:36 09/02/19 23 09/03/2022 CBC (INCL UDES DIFF/ PLT) hematocrit 36.7 % 38.5-5 0.0 low Not Available [facility] [place] [facility] [address], [place], [address], 09/03/2022 06:06:36 09/02/1909/03/2022 CBC (INCL UDES DIFF/ PLT) MCV 85.2 fL 80.0-1 00.0 normal Not Available [facility] [place] [facility] [address], [place], [address], 09/03/2022 06:06:36 09/02/1909/03/2022 CBC (INCL UDES DIFF/ PLT) MCH 28.3 pg 27.0-3 3.0 normal Not Available [facility] [place] [facility] [address], [place], [address], 09/03/2022 06:06:36 09/02/19 23 09/03/2022 CBC (INCL UDES DIFF/ PLT) MCHC 33.2 g/dL 32.0-3 6.0 normal Not Available [facility] [place] [facility] [address], [place], [address], 09/03/2022 06:06:36 09/02/19 23 09/03/2022 CBC (INCL UDES DIFF/ PLT) RDW 13.2 % 11.0-1 5.0 normal Not Available [facility] [place] [facility] [address], [place], [address], 09/03/2022 06:06:36 09/02/1909/03/2022 CBC (INCL UDES DIFF/ PLT) platelet count 216 thous and/u L 140-40 0 normal Not Available [facility] [place] [facility] [address], [place], [address], 09/03/2022 06:06:36 09/02/1909/03/2022 CBC (INCL UDES DIFF/ PLT) MPV 10.6 fL 7.5-12 .5 normal Not Available [facility] [place] [facility] [address], [place], [address], 09/03/2022 06:06:36 09/02/1909/03/2022 CBC (INCL UDES DIFF/ PLT) absolute neutrophils 8370 cells /uL 1500-7 800 high Not Available [facility] [place] [facility] [address], [place], [address], 09/03/2022 06:06:36 09/02/1909/03/2022 CBC (INCL UDES DIFF/ PLT) absolute lymphocytes 950 cells /uL 850-39 00 normal Not Available [facility] [address], [place], [address], 09/03/2022 06:06:36 09/02/19 23 09/03/2022 CBC (INCL UDES DIFF/ PLT) absolute monocytes 171 cells /uL 200-95 0 low Not Available [facility] [place] [facility] [address], [place], [address], 09/03/2022 06:06:36 09/02/19 23 09/03/2022 CBC (INCL UDES DIFF/ PLT) absolute eosinophils 0 cells /uL 15-500 low Not Available [facility] [place] [facility] [address], [place], [address], 09/03/2022 06:06:36 09/02/19 23 09/03/2022 CBC (INCL UDES DIFF/ PLT) absolute basophils 10 cells /uL 0-200 normal Not Available [facility] [place] [facility] [address], [place], [address], 09/03/2022 06:06:36 09/02/19 23 09/03/2022 CBC (INCL UDES DIFF/ PLT) neutrophils 88.1 % normal Not Available [facility] [place] [facility] [address], [place], [address], 09/03/2022 06:06:36 09/02/19 23 09/03/2022 CBC (INCL UDES DIFF/ PLT) lymphocytes 10.0 % normal Not Available [facility] [place] [facility] [address], [place], [address], 09/03/2022 06:06:36 09/02/19 23 09/03/2022 CBC (INCL UDES DIFF/ PLT) monocytes 1.8 % normal Not Available [facility] [place] [facility] [address], [place], [address], 09/03/2022 06:06:36 09/02/19 23 09/03/2022 CBC (INCL UDES DIFF/ PLT) eosinophils 0.0 % normal Not Available [facility] [place] [facility] [address], [place], [address], 09/03/2022 06:06:36 09/02/19 23 09/03/2022 CBC (INCL UDES DIFF/ PLT) basophils 0.1 % normal Not Available [facility] [place] [facility] [address] [facility], [place], [address], 09/03/2022 06:06:36 02/27/20 24 02/27/2024 rapid strep group A, throa t rapid strep negati ve Not Available [address], [address], 02/27/2024 09:39:02 02/27/20 24 02/27/2024 rapid flu (A+B) rapid flu negati ve Not Available [address], [address], 02/27/2024 09:39:00 Result Notes None recorded. Problems Name Problem SNOMED Code Status Onset Date Resolution Date Notes Provider Name and Address Organization Details Recorded Time History of substance abuse [id number] Active Una Caicedo MD [address], [phone] , [facility] [employer] 7 22:22:36 Problem Notes None recorded. Procedures Surgical History Date Name Laterality Status Provider Name and Address Organization Details Recorded Time 05/26/20 20 Cerumen Removal completed Una Caicedo MD [address], [address], [facility] 05/27/2020 21:07:54 09/03/19 20 cryotherapy surgery completed Una Caicedo MD [address], [address], [facility] 09/03/2019 10:44:31 Tonsillectomy completed [facility] 04/24/2017 09:21:46 Imaging Results None recorded. Procedure Notes None recorded. Medical Equipment None Reported. Allergies Allergen ID Allergen Name Allergen Category Reaction Reaction Severity Criticality Documentation Date Start Date Code Code System Note Provider Name and Address Organization Details Recorded Time [address] Phenergan medicatio n other moderate Not available 04/24/2017 98276 8 RxNorm NISHI Plascencia & Elissa CaicedoSErikCErik [...] Updated DateTime 0 185.42 cm 20.4 kg/m2 41527.3 2 g 74 /min 98 % 98 [...] Updated DateTime 4 185.42 cm 18.3 kg/m2 23059.8 5 g 83 /min 98 % 98 % 98.6 [degF] 131 mm[Hg] 95 mm[Hg] [facility] 4 09:38:06 Date Recorded Body height Body mass index (BMI) Body weight Heart rate Oxygen saturation Oxygen saturation in Arterial blood by Pulse oximetry Body temperature Systolic blood pressure Diastolic blood pressure Provider Name and Address Organization Details Last Updated DateTime 0 185.42 cm 20.7 kg/m2 34357 g 70 /min 98 % 98 % 98.2 [degF] 137 mm[Hg] 74 mm[Hg] [facility] 0 08:49:12 Date Recorded Body height Body mass index (BMI) Body weight Heart rate Oxygen saturation Oxygen saturation in Arterial blood by Pulse oximetry Body temperature Systolic blood pressure Diastolic blood pressure Provider Name and Address Organization Details Last Updated DateTime 1 185.42 cm 20.5 kg/m2 47385.6 2 g 82 /min 98 % 98 % 98.6 [degF] 123 mm[Hg] 80 mm[Hg] [facility] 1 10:03:34 Date Recorded Body height Body mass index (BMI) Body weight Heart rate Oxygen saturation Oxygen saturation in Arterial blood by Pulse oximetry Body temperature Systolic blood pressure Diastolic blood pressure Provider Name and Address Organization Details Last Updated DateTime 2 185.42 cm 19.9 kg/m2 46064.1 5 g 84 /min 97 % 97 % 98.4 [degF] 118 mm[Hg] 69 mm[Hg] [facility] 2 16:44:35 Social History Question Answer Notes LastModified by Organizat ion Details LastModified Time Tobacco Smoking Status Former Smoker quit cigarettes in 2017 Una Caicedo MD 2017 [facility], [facility], [place], [address], [facility] 03/18/2019 14:12:01 What Is [...] Following? REGULAR Information not available [address] [place] [address] Information not available 04/24/2017 What Is The Highest Grade Or Level Of School You Have Completed Or The Highest Degree You Have Received? [id number] Information not available 2021 Who Is Your [...] anxious, or unable to sleep at night)? [id number] Information not available 2021 Family History Relationship [...] quadrivalent, PF 05/26/2020 completed Not Available [facility] 0 08:54:46 Influenza, recombinant, quadrivalent, PF 04/26/2021 completed Not Available [facility] 1 09:36:41 Influenza, recombinant, quadrivalent, PF 07/08/2022 completed Una Caicedo MD [address], [address], [facility] 07/10/2022 11:24:22 Tdap 02/18/2019 completed Una Caicedo MD [address], [address], [facility] 02/27/2019 15:50:21 COVID-19 vaccine, vector-nr, rS-Ad26, PF, 0.5 mL 10/28/2020 completed [facility] 2021 14:00:42 COVID-19 vaccine, vector-nr, rS-Ad26, PF, 0.5 mL 08/18/2021 completed Una Caicedo MD [address], [address], [facility] 07/08/2022 17:12:37 Past Encounters Encounter ID Performer Location Encounter Start Date Encounter Closed Date Diagnosis/Indication Diagnosis SNOMED-CT Code Diagnosis ICD10 Code Diagnosis Note [id number] Una Caicedo MD [facility] [address] [address] 04/24/2017 09:03:21 05/09/2017 09:12:25 History and physical examination, pre-employment 169288210 Z02.1 Body mass index less than 20 137549312 Z68.1 Impacted cerumen 2233637 6 H61.23 Contact dermatitis 57629 004 L25.9 Serous otitis media 8032 7007 H65.91 [id number] Una Caicedo MD [facility] [address] [place] [id number] 06/02/2017 13:38:51 06/05/2017 08:24:32 Acute otitis media 0630632 H65.06 Chronic back pain 983525 002 M54.9 Body mass index less than 20 970700330 Z68.1 [id number] Una Caicedo MD [facility] [address] [address] 03/18/2019 13:20:52 03/20/2019 08:45:27 Adult health examination 732063121 Z00.00 Open wound of hand 76971 2005 S61.402D Local infe ction of wound 97006582 T14.90XD Drug-induc ed constipation 57556444 K59.03 Body mass index less than 20 510568245 Z68.1 [id number] Una Caicedo MD [facility] [address] [address] 09/03/2019 09:11:34 09/03/2019 14:07:04 Abdominal pain 86505353 R10.9 Hematochezia 358925386 K 92.1 Gastroesop hageal reflux disease 478919029 K21.9 Chronic constipation 236 687139 K59.09 Verruca vulgaris 0178284 3 B07.9 [id number] Una Caicedo MD [facility] [address] [address] 09/13/2019 08:52:03 09/13/2019 11:43:49 Acute sinusitis 36266387 J01.90 Asthmatic bronchitis 405 922957 J45.909 [id number] Una Caicedo MD [facility] [address] [id number] 02/24/2020 08:47:49 02/24/2020 13:39:08 Impacted cerumen of bilateral ears 8292802501 169993 H61.23 Winged left scapula 1574 477209 5799814 M21.80 Hypertensi on screening 915063463 Z13.6 [id number] Una Caicedo MD [address] [address] 05/26/2020 08:48:21 05/28/2020 08:16:26 Administration of influenza vaccine 78312559 Z23 Essential hypertension 78768079 I10 Fatigue 24741451 R53.83 Hyperlipidemia 33254588 E78.5 Opioid dep endence in remission 842190846 F11.21 his specialist is considerin g this injection to help him get off the suboxone. Allergic rhinitis 641876 04 J30.9 Gastroesop hageal reflux disease 963994330 K21.9 Adult heal th examination 729000158 Z00.00 Drug-induc ed constipation 31813679 K59.03 Body mass index 20-24 - normal 405901941 Z68.20 [id number] Una Caicedo MD [address] [address] 2021 09:53:30 06/27/2021 16:58:29 Allergic rhinitis 38669320 J30.9 Anxiety disorder 0251566 06 F41.9 Nicotine dependence 5629 4008 F17.200 Adult heal th examination 192908163 Z00.00 Essential hypertension 07782071 I10 Fatigue 18003635 R53.83 Hyperlipidemia 52209502 E78.5 Opioid dep endence in remission 024042115 F11.21 his specialist is considerin g this injection to help him get off the suboxone. Gastroesop hageal reflux disease 829121312 K21.9 Drug-induc ed constipation 94789323 K59.03 Body mass index 20-24 - normal 150222586 Z68.20 [id number] Una Caicedo MD [facility] [address] [address] 07/08/2022 16:24:14 07/11/2022 10:53:44 Administration of influenza vaccine 18210860 Z23 Adult heal th examination 040536564 Z00.00 Allergic rhinitis 390553 04 J30.9 Anxiety disorder 8777329 06 F41.9 Nicotine dependence 5629 4008 F17.200 Essential hypertension 57126831 I10 Fatigue 40042569 R53.83 Hyperlipidemia 18714434 E78.5 Opioid dep endence in remission 923639500 F11.21 his specialist is kimberly rodriguez injection to help him get off the suboxone. Gastroesop hageal reflux disease 846783926 K21.9 Drug-induc ed constipation 84237665 K59.03 Body mass index less than 20 912797770 Z68.1 Atypical chest pain 1025 59826 R07.89 Depression screening 171 211618 Z13.31 [id number] Una Caicedo MD [facility] [address] [address] 02/27/2024 09:36:58 02/27/2024 11:11:00 Disorder of respiratory system 42921034 J98.9 Acute sero us otitis media of bilateral ears 9221744359 716368 H65.03 Health Concerns Section Related Observation LastModified by Organization Detai ls LastModified Time None Recorded Concern Status LastModified by Organization Details LastModified Time None Recorded Advance Directives Directive None Recorded Payers Insurance Date Sequence Insurance Name Policy Number Policy Russell Covered Member ID Russell Member ID Guarantor Name 06/02/2017 1 *SELF PAY* Isabelle Atkins 03/15/2019 1 [employer] (PPO) [id number] Ilan Atkins [id number] Ilan Atkins 02/27/2024 1 [employer] (POS) [id number] Ilan Atkins [id number] Ilan Atkins 02/27/2024 1 [place] [id number] Ilan Atkins [id number] Ilan Atkins Notes Date Note Type Note [...] he requires cureting. Una Caicedo MD 2017 [facility], [address], [place], [address], [facility] 02/24/2020 [...] he had covid Una Caicedo MD 2017 [facility], [address], [place], [address], [facility] 07/10/2022 11:39:53 [...] pressure and fevers. Una Caicedo MD 2017 [facility], [address], [place], [address], [facility] 02/27/2024 10:27:27
--- NOTE | 2025-01-24 16:45 | XR_ITS ---
PROCEDURE INFORMATION: Exam: XR Chest Exam date and time: 01/24/2025 4:38 PM Age: 39 years old Clinical indication: Cough; Additional info: Lll wheezing on inspiration, productive cough, fever, smoker x 25 yrs TECHNIQUE: Imaging protocol: Radiologic exam of the chest. Views: 2 views. COMPARISON: No relevant prior studies available. FINDINGS: Lungs: Focal patchy and slightly nodular infiltrate within the right upper lobe consistent with mild pneumonia. Recommend follow-up two-view chest x-ray after treatment to document resolution. Pleural spaces: Unremarkable. No pleural effusion. No pneumothorax. Heart/Mediastinum: Unremarkable. No cardiomegaly. Bones/joints: Unremarkable. IMPRESSION: Focal patchy and slightly nodular infiltrate within the right upper lobe consistent with mild pneumonia. Recommend follow-up two-view chest x-ray after treatment to document resolution.
--- NOTE | 2025-01-24 16:48 | HMH.EDGENADL ---
Discharge Plan Disposition Patient Disposition: Home, Self-Care Prescriptions Prescriptions: New ondansetron 4 mg tablet,disintegrating 4 mg PO Q6H PRN (Reason: nausea and vomiting) Qty: 10 0RF amoxicillin-pot clavulanate 875-125 mg tablet 1 tab PO BID 5 Days Qty: 10 0RF No Action gabapentin 800 mg tablet 800 mg PO TID buprenorphine-naloxone 8-2 mg film 2 film buccal DAILY azithromycin 250 mg tablet See Rx Instructions PO .COMPLEX Qty: 6 0RF Rx Instructions: For 250 mg dose pack: take 500 mg today (day 1), then 250 mg for 4 days (days 2-5) PO Referrals Follow up/Referrals: Suzie Hernández APRN [Primary Care Provider, Family Practice] - See instructions Activity Restrictions/Add. Instructions Additional Instructions/Restrictions: Call your family doctor to establish care for this visit to the emergency department and schedule follow-up within 48 hours to ensure improvement. If you have any worsening of your condition or any other concerning signs or symptoms, return to the emergency department or your primary care doctor for further evaluation. Antibiotic twice daily for 5 days. Zofran for nausea and vomiting Clinical Impressions Clinical Impression: Pneumonia Instructions Patient Instructions: DI for Diarrhea and Traveler's Diarrhea -- Adult, DI for Diarrhea and Traveler's Diarrhea -- Child, DI for Nausea -- Adult, DI for Nausea -- Child Print Language Print Language: Montserratian Discharge ED Provider: Hardik Gaxiola General Adult HPI General Chief complaint: Nausea/Vomiting/Diarrhea Stated complaint: vomiting Time Seen by Provider: 01/24/25 16:36 Mode of Arrival: Ambulatory Source of Information: Patient Description of Symptoms (Recalled from ER Triage Doc. by RN): Patient states that he was seen at PCP office on Monday01/21/25 for respiratory symptoms and tested for Covid, given steroid shot and prescribed Z-pack. Patient states that he started vomiting yesterday. Patient states he has vomited once today. History of Present Illness HPI narrative: Please note that above description of symptoms, in this electronic medical record under categorization of recalled from ER triage doctor by RN are reflective of an initial nursing assessment, however, is not reflective of my full history and physical exam that was personally taken and clarified. Consequentially, this preceding description of symptoms, which may include the patient's categorized chief complaint in the EMR, do not reflect my personal clinical impression, and the ultimate description of history of present illness and patient stated complaints should be deferred to this section of the note. Unless stated otherwise or congruent with this section of the note, additional signs, symptoms, or incongruence should be interpreted as inaccurate with my clinical impression. Related Data Home Medications ?Medication ?Instructions ?Recorded ?Confirmed buprenorphine 8 mg-naloxone 2 mg 2 film buccal DAILY 12/03/24 01/21/25 sublingual film gabapentin 800 mg tablet 800 mg PO TID 12/03/24 01/21/25 Previous Rx's ?Medication ?Instructions ?Recorded azithromycin 250 mg tablet See Rx Instructions PO .COMPLEX #6 01/21/25 tabs amoxicillin 875 mg-potassium 1 tab PO BID 5 days #10 tabs 01/24/25 clavulanate 125 mg tablet ondansetron 4 mg disintegrating 4 mg PO Q6H PRN nausea and 01/24/25 tablet vomiting #10 tabs Allergies Allergy/AdvReac Type Severity Reaction Status Date / Time From [facility] Allergy Unknown Uncoded 01/21/25 12:26 [facility] Disclaimer: The information contained in this section may have been updated after the patient was seen, as this information can be updated by other users. Medical History Neuropathy History of opioid abuse Sober since 2016 Surgical History No history of previous surgery Family History Other Cancer Diabetes Hypertension Social History Smoking Status: Current every day smoker tobacco type: e-cigarettes alcohol intake: never substance use type: denies use current occupational status: employed Travel in the last 8 weeks?: None Have you lived/traveled outside [place] in past 30 days?: No Contact w/someone who lives/traveled outside US past 30 days?: No Exposure to someone with infectious disease in past 14 days?: No Do you have a fever (greater than 100.4 F or 38 C)?: No Have you tested positive for COVID-19?: No Exposed to someone with COVID-19 in past 14 days?: No Do you have a sore throat?: No Do you have a cough?: No Do you have any weakness?: No Do you have any diarrhea?: No Are you experiencing any unusual bleeding?: No Do you have any muscle aches/pain?: No Do you have any abdominal pain?: No Are you experiencing loss of taste or smell?: No ROS Obtained: Yes All systems reviewed & no additional complaints except as documented Physical Exam General General appearance: alert Head Head exam: atraumatic and normocephalic Eye Eye exam: Present normal appearance, PERRL and EOMI Neck Neck exam: Present normal inspection, full ROM and trachea midline Respiratory Respiratory exam: Present wheezes (On inspiration left lower lobe anteriorly); Absent respiratory distress, stridor, accessory muscle use or prolonged expiratory phase Cardiovascular Cardiovascular exam: Present other (Pulses equal symmetric in upper and lower extremities) Abdominal Exam Abdominal exam: Present soft; Absent distention, tenderness or pulsatile mass Extremities Exam Extremities exam: Absent edema Neurological Exam Neurological exam: Present alert, oriented X3 and CN II-XII intact; Absent motor sensory deficit Skin Skin exam: Present warm and dry; Absent diaphoresis or erythema Medical Decision Making Medical Records Medical records reviewed: Yes I reviewed the patient's medical records. Screening: Per USPSTF and CDC recommendations, given the prevalence of disease in our region, it is our hospital?s policy to screen for HIV and viral Hepatitis for all patients aged 18 and over and those with ongoing risk factors. Tom Inquiry Pt receiving controlled substance: No Tom was queried for this patient: No Vital Signs: 01/24/25 16:37 01/24/25 17:09 Temperature 99 F Temperature Source Oral Pulse Rate 71 Pulse Rate [Right Brachial] 81 Respiratory Rate 16 17 Blood Pressure 126/73 Blood Pressure [Right Arm] 135/80 Blood Pressure Mean [Right Arm] 98 Blood Pressure Source [Right Arm] Automatic Cuff Blood Pressure Position [Right Arm] Sitting 02 Sat by Pulse Oximetry 96 98 Oxygen Delivery Method Room Air Room Air Orders (Tests/Meds): ED MEDICATIONS Discontinued Medications Generic Name Dose Route Start Last Admin Trade Name Freq PRN Reason Stop Dose Admin Albuterol/Ipratropium 9 ml 01/24/25 16:45 01/24/25 17:01 Ipratropium/Albuterol 3 Ml Neb IH 01/24/25 16:46 9 ml ONCE ONE Administration Amoxicillin/Clavulanate Potassium 1 each 01/24/25 16:45 01/24/25 17:01 Amoxicillin/Clavulanate Potassium 875/125mg Tablet PO 01/24/25 16:46 1 each ONCE ONE Administration Dexamethasone 10 mg 01/24/25 16:45 01/24/25 17:01 Dexamethasone 4mg Tablet PO 01/24/25 16:46 10 mg ONCE ONE Administration ORDERS Category Date Time Status CXR 2 view (NOT portable) [XR chest 2V] Stat Exams 01/24/25 16:45 Completed Medical Decision Narrative: 39-year-old male presenting with productive cough. Has had productive cough for 4 days at this point. Fevers as well. Cough is productive of thick, yellow sputum. He does smoke about 1/2 pack/day also vapes. No nausea or vomiting, but he does state that he has been feeling generally unwell. Came in for further evaluation. History was obtained via conversation with patient. On arrival, patient hemodynamically stable, alert, oriented x4, appropriate, GCS 15, moving all extremities spontaneously, pupils equal and reactive to light. Full physical exam performed and significant for 39-year-old male in no acute distress. Speaking full sentences. Afebrile, nontachycardic. Lungs have isolated inspiratory wheezing in the left lower lobe anteriorly. Otherwise lungs sound all right. Cardiac exam without murmurs gallops or rubs.. Differential includes bronchitis, pneumonia, pleural effusion, parapneumonic effusion, less likely be PE given insidious, no tachycardia, no shortness of breath, among others. Patient was given DuoNebs Decadron Augmentin. Chest x-ray was obtained. On independent interpretation of chest x-ray what appears to be multifocal pneumonia right upper lobe and left lower lobe. Reevaluation, patient feeling better after steroids, nebs. Antibiotic initiated. Rest of antibiotics sent to his pharmacy. Given patient presentation, workup, history, this most likely represents acute pneumonia. Because patient at baseline without signs or symptoms of clinical decompensation, deemed appropriate for discharge. Results were relayed to patient who voiced understanding and were agreeable to outpatient management and follow up. I discussed my clinical impression with patient and answered all questions. At this time, the evidence for any other entities in the differential is insufficient to warrant any further testing or ED observation. This was explained as well. Advisory was given that persistent or worsening symptoms require further evaluation. I confirmed the understanding of this discussion. Ship Laborer disclaimer Much of this encounter note is an electronic head of merchandise buying spoken language to printed text. Electronic head of merchandise buying of the spoken language may permit errors. Although I have reviewed the note, some errors may still exist. Critical Care Critical Care Time Critical Care Time: No
[2025-01-24] MEDS: AMOXICILLIN/CLAVULANATE POTASSIUM 875/125MG TABLET 1 EACH PO (17:01)
[2025-01-24] MEDS: IPRATROPIUM/ALBUTEROL 3 ML NEB 9 ML IH (17:01)
[2025-01-24] MEDS: DEXAMETHASONE 4MG TABLET 10 MG PO (17:01)
[2025-01-24 17:09] VITALS: BP 126/73; PULSE 71; RESP 17; O2SAT 98
[2025-01-24 17:50] VITALS: BP 126/73; PULSE 71; RESP 17; TEMP 37.2; O2SAT 98
[2025-01-24 17:53] VITALS: BP 125/74; PULSE 89; RESP 19; TEMP 37.1; O2SAT 98
== END 2025-01-24 17:54 | disposition home or self-care (01) ==
PROVIDERS: Emergency Provider Emergency Medicine; PCP Nurse Practitioner Family
DX: J18.9 Pneumonia, unspecified organism (principal); F17.210 Nicotine dependence, cigarettes, uncomplicated
CPT/HCPCS: 71046; 99284; J8540